=== PATIENT | male | born 1960 | race Caucasian/White ===

== ENCOUNTER 2025-02-17 08:17 | Outpatient (AMB) | payer OTHER, SELFPAY ==
--- OUTSIDE RECORDS SUMMARY | 2024-11-07 07:45 | XMS_ITS ---
Author Organization [facility] Address [address] [place] [address] Care Team Providers Care Creche Attendant Name Role Phone Alixrichard Amador Primary Care Provider ALLERGIES No Known Allergies REASON FOR VISIT (IN OFFICE), Follow Up MEDICATIONS Medication SIG (Take, Route, Frequency, Duration) Notes Start Date End Date Status Vitamin D3 125 MCG (5000 UT) 1 capsule Orally Once a day for 90 Days Active Meloxicam 15 MG 1 tablet Orally Once a day for 30 day(s) 11/07/2024 Active Nicoderm CQ 7 MG/24HR 1 patch to skin Transdermal Once a day for 30 day(s) Active Alfuzosin HCl ER 10 MG 1 tablet immediat crista after the same meal Orally Once a day for 30 day(s) 11/07/2024 Active SOCIAL HISTORY Tobacco Use: Social History Observation Description Date Details (start date - stop date) Former Smoker NA - NA Sex Assigned At : Social History Observation Description Sex Assigned At Unknown Tobacco Use/Smoking Question Answer Notes Are you a former smoker Alcohol Screen Question Answer Notes Did you have a drink contain ing alcohol in the past year? Yes How often did you have a dri nk containing alcohol in the past year? 2 to 3 times a week (3 points) Points 3 Interpretation Negative VITAL SIGNS Blood pressure systolic 132 mm Hg 11/08/19 25 Blood pressure diastolic 72 mm Hg 025 Heart Rate 80 /min 11/07/2024 Height 64 in 11/07/2024 Weight 213.6 lbs 11/07/2024 BMI 36.66 kg/m2 11/07/2024 Encounters Encounter Location Date Provider Diagnosis Eduin Griffin, [address] [place] [address] 11/07/2024 Amador Denny Status post right kn ee replacement Z96.651 ; Primary osteoarthritis of right hip M16.11 ; Acute pain of right knee M25.561 ; Benign prostatic hyperplasia with lower urinary tract symptoms N40.1 and Vitamin D deficiency E55.9 ASSESSMENTS Encounter Date Diagnosis Assessment Notes Treatment Notes Treatment Clinical Notes Section Notes 11/07/2024 Status post right knee replacement (ICD-10 - Z96.651) 11/07/2024 Primary osteoarthritis of right hip (ICD-10 - M16.11) 11/07/2024 Acute pain of right knee (ICD-10 - M25.561) 11/07/2024 Benign prostatic hyperplasia with lower urinary tract symptoms (ICD-10 - N40.1) 11/07/2024 Vitamin D deficiency (ICD-10 - E55.9) 11/07/2024 Other This chart has been transcribed by a computerized dictation system. There are likely to be multiple car designer inaccuracies despite chart review. PLAN OF TREATMENT Medication Medication Name Sig Start Date Stop Date Notes Vitamin D3 125 MCG (5000 UT) 1 capsule O rally Once a day for 90 Days Tamsulosin HCl 0.4 MG 1 capsule Orally O nce a day for 90 Days Ibuprofen 800 MG 1 tablet with food o r milk as needed Orally every 8 hrs Meloxicam 15 MG 1 tablet Orally Once a day for 30 day(s) 11/07/2024 Alfuzosin HCl ER 10 MG 1 tablet immediat crista after the same meal Orally Once a day for 30 day(s) 11/07/2024 Treatment Notes Assessment Notes Other This chart has been transcribed by a computerized dictation system. There are likely to be multiple car designer inaccuracies despite chart review. Next Appt Details Follow Up: 4 Weeks, Reason: Follow up with Marissa Provider Name:Marissa Coughlinmontserratallyssa samson, 02/25/2025 04:15:00 PM, [address] [place] [address], [phone], Progress Notes * Examination Category Sub-Category Detail Notes Category Not es General Examination GENERAL APPEARANCE: in no ac [place] distress, well developed, well nourished HEAD: normocephalic, atrau matic EYES: pupils equal, round, reactive to light and accommodation THROAT: clear, no erythema, uvula midline, no exudate NECK/THYROID: neck supple, no thyr omegaly, trachea midline, no carotid bruit HEART: no murmurs, regular rate and rhythm, S1, S2 normal LUNGS: clear to auscultatio n bilaterally ABDOMEN: soft, nontender, non distended, no organomegaly , bowel sounds present NEUROLOGIC: alert and oriented x 3, nonfocal SKIN: no suspicious lesion s, warm and dry EXTREMITIES: no clubbing, cyanosi s, or edema PERIPHERAL PULSES: normal, 2+ throughou t MUSCULOSKELETAL: tenderness and swell ing to right knee, temperature normal LYMPH NODES: no cervical, axillar y, supraclavicular or inguinal adenopathy PSYCH: cognitive function i ntact, mood/affect full range ORAL CAVITY: mucosa moist, no les ions, palate normal, tongue in midline, well papillated History and Physical Notes * HPI (History of Present Illness) Category Sub-Category Detail Notes Category Not es Symptom(s) 64-year-old mal e patient with history of DJD, status post total right knee replacement and chronic tobacco abuse is here for follow up. He is compliant with his medications but he tells me that the ibuprofen is bothering his stomach and his tamsulosin is making him drowsy. He has only been taking the ibuprofen 800mg once a day because of the upset stomach. I suggested trying Meloxicam 15mg daily for mangement of his pain. He is agreeable to this and I explained that he can use Tylenol in conjunction if needed. I told him to stop the Tamsulosin 0.4mg and try Alfuzosin 10mg daily instead in hopes that it will not make him drowsy. He is agreeable to this. He has been seen by Dr. Hunt for a consultation regarding his right hip and it will be having a hip replacement in the near future. He continues to follow with Dr. Holt from the [place] for his care as well. I have asked that all notes be shared with this office. His blood pressure is well controlled. He denies chest pain, palpitations and shortness of breath.
--- OUTSIDE RECORDS SUMMARY | 2024-12-02 11:15 | XMS_ITS ---
[facility] Address [address] [place] [address] Care Team Providers Care Atg Architect Name Role Phone Amador Denny Primary Care Provider ALLERGIES No Known Allergies REASON FOR VISIT (IN OFFICE), Follow Up MEDICATIONS Medication SIG (Take, Route, Frequency, Duration) Notes Start Date End Date Status Meloxicam 15 MG 1 tablet Orally Once a day for 30 day(s) Active Vitamin D3 125 MCG (5000 UT) 1 capsule Orally Once a day for 90 Days Active Alfuzosin HCl ER 10 MG 1 tablet immediat crista after the same meal Orally Once a day for 30 day(s) Active Nicoderm CQ 7 MG/24HR 1 patch to skin Transdermal Once a day for 30 day(s) Active SOCIAL HISTORY Tobacco Use: Social History [...] week (3 points) Points 3 Interpretation Negative Encounters Encounter Location Date Provider Diagnosis [facility] [address] [place] [address] 12/02/2024 Amador Denny Status post right kn [...] system. There are likely to be multiple sporting goods salesperson inaccuracies despite chart review. PLAN OF TREATMENT Medication Medication Name Sig Start Date Stop Date Notes Meloxicam 15 MG 1 tablet Orally Once a day for 30 day(s) Vitamin D3 125 MCG (5000 UT) 1 capsule O rally Once a day for 90 Days Alfuzosin HCl ER 10 MG 1 tablet immediat crista after the same meal Orally Once a day for 30 day(s) Treatment Notes Assessment Notes Other This chart has been transcribed by a computerized dictation system. There are likely to be multiple sporting goods salesperson inaccuracies despite chart review. Next Appt Details Provider Name:Marissa Powell i, 02/25/2025 04:15:00 PM, [address] [place] [address], [phone], Progress Notes * Examination Category Sub-Category Detail Notes Category Not es General Examination GENERAL APPEARANCE: in no ac [place] distress, well developed, well nourished HEAD: normocephalic, [...] to follow with Dr. Holt from the [place] for his care as well. I have asked that all notes be shared with this office. His blood pressure is well controlled. He denies chest pain, palpitations and shortness of breath.
--- OUTSIDE RECORDS SUMMARY | 2024-12-03 01:03 | XMS_ITS ---
Author Organization [facility] Address [address] [place] [address] Care Team Providers Care Senior Data Warehouse Architect Name Role Phone Amador Denny Primary Care Provider [phone] REASON FOR VISIT Missed appointment Encounters Encounter Location Date Provider Diagnosis Amador D[facility] [address] [facility] [place] [place] [id number] 12/03/2024 Amador Denny PLAN OF TREATMENT Next Appt Details Provider Name:Marissa Powell i, 02/25/2025 04:15:00 PM, [address] [place], [phone],
--- OUTSIDE RECORDS SUMMARY | 2024-12-04 11:00 | XMS_ITS ---
[facility] Address [address] [place] [address] Care Team Providers Care Washcloth Folder Name Role Phone AlixAmador ramos Primary Care Provider [phone] ALLERGIES No Known Allergies REASON FOR VISIT (IN OFFICE), Follow Up MEDICATIONS Medication SIG (Take, Route, Frequency, Duration) Notes Start Date End Date Status Vitamin D3 125 MCG (5000 UT) 1 capsule Orally Once a day for 90 Days Active Nicoderm CQ 7 MG/24HR 1 patch to skin Transdermal Once a day for 30 day(s) Active Meloxicam 15 MG 1 tablet Orally Once a day for 30 day(s) Active Alfuzosin HCl ER 10 MG 1 tablet immediat crista after the same meal Orally Once a day for 90 Days Active SOCIAL HISTORY Tobacco Use: Social History [...] week (3 points) Points 3 Interpretation Negative PROBLEMS Problem Type ICD Code Onset Dates Problem Status W/U Status Risk SNOMED Code Notes Problem Stasis dermatitis (I87.2) Active confirmed 26202889 VITAL SIGNS Blood pressure systolic 120 mm Hg 12/05/19 25 Blood pressure diastolic 80 mm Hg 025 Heart Rate 72 /min 12/04/2024 Height 64 in 12/04/2024 Weight 213.8 lbs 12/04/2024 BMI 36.69 kg/m2 12/04/2024 Encounters Encounter Location Date Provider Diagnosis Eduin Griffin, [address] [place] [address] 12/04/2024 Amador Denny Benign prostatic hyperplasia with lower urinary tract symptoms N40.1 ; Primary osteoarthritis of right hip M16.11 ; Acute pain of right knee M25.561 ; Vitamin D deficiency E55.9 and Stasis dermatitis I87.2 ASSESSMENTS Encounter Date Diagnosis Assessment Notes Treatment Notes Treatment Clinical Notes Section Notes 12/04/2024 Benign prostatic hyperplasia with lower urinary tract symptoms (ICD-10 - N40.1) 12/04/2024 Primary osteoarthritis of right hip (ICD-10 - M16.11) 12/04/2024 Acute pain of right knee (ICD-10 - M25.561) 12/04/2024 Vitamin D deficiency (ICD-10 - E55.9) 12/04/2024 Stasis dermatitis (ICD-10 - I87.2) Advised patient to avoid tight, band-like clothing around ankles. Encouraged him to wear compression stockings when on his feet for an extended period of time. 12/04/2024 Other This chart has been transcribed by a computerized dictation system. There are likely to be multiple vocal artist inaccuracies despite chart review. PLAN OF TREATMENT Medication Medication Name Sig Start Date Stop Date Notes Vitamin D3 125 MCG (5000 UT) 1 capsule O rally Once a day for 90 Days Meloxicam 15 MG 1 tablet Orally Once a day for 30 day(s) Alfuzosin HCl ER 10 MG 1 tablet immediat crista after the same meal Orally Once a day for 90 Days Treatment Notes Assessment Notes Stasis dermatitis Advised patient to a void tight, band-like clothing around ankles. Encouraged him to wear compression stockings when on his feet for an extended period of time. Other This chart has been transcribed by a computerized dictation system. There are likely to be multiple vocal artist inaccuracies despite chart review. Next Appt Details Follow Up: 3 Months, Reason: Follow up with Marissa Provider Name:Marissa Coughlinmontserratallyssa samson, 02/25/2025 04:15:00 PM, [address] [place] [address], [phone], Progress Notes * Examination Category Sub-Category Detail Notes Category Not es General Examination GENERAL APPEARANCE: in no ac [place] distress, well developed, well nourished HEAD: normocephalic, [...] alert and oriented x 3, nonfocal SKIN: scattered, flat, pin -point red spots on bilateral lower legs at sock line, no increase in temperature, no swelling EXTREMITIES: no clubbing, cyanosi s, or edema PERIPHERAL PULSES: normal, 2+ throughou t MUSCULOSKELETAL: normal, full range o f motion of the right hip with pain, no point tenderness of hip, no increase in temperature LYMPH NODES: no cervical, axillar y, supraclavicular [...] abuse is here for follow up. He tells me that his BPH symptoms are improved with the switch to Alfuzosin 10mg. He tells me that his stream is still on the weaker side. I explained that the medication can take up to 6 weeks to be fully in his system. He tells me that his pain is much better controlled with Meloxicam 15mg daily and tylenol as needed. He has not had any stomach issues. His blood pressure remains well controlled without medication. He denies chest pain, palpitations and shortness of breath. He is scheduled for his right hip replacement on 01/[address] Hunt. He showed me a rash on his bilateral lower legs at his sock line that he tells me comes and goes, is not painful, itchy or raised. I explained that it most likely could be stasis dermatitis. I encouraged him to wear compression stockings when on his feet for long periods of time.
--- OUTSIDE RECORDS SUMMARY | 2024-12-12 08:33 | XMS_ITS ---
Author Organization [facility] Address [address] [place] [address] Care Team Providers Care Shoe Salesman Name Role Phone Amador Denny Primary Care Provider [phone] REASON FOR VISIT No show Encounters Encounter Location Date Provider Diagnosis Eduin Griffin [address] [place] [address] 12/13/19 Amador Denny PLAN OF TREATMENT Next Appt Details Provider Name:Marissa Powell i, 02/25/2025 04:15:00 PM, [address] [place], [phone],
--- OUTSIDE RECORDS SUMMARY | 2024-12-21 12:04 | XMS_ITS ---
Author Organization [facility] Address [address] [place] [address] Care Team Providers Care Licensed Vocational Nurse Name Role Phone Amador Denny Primary Care Provider REASON FOR VISIT Encounters Encounter Location Date Provider Diagnosis Eduin Griffin [address] [place] [address] 12/22/19 Amador Denny PLAN OF TREATMENT Next Appt Details Provider Name:Marissa Powell i, 02/25/2025 04:15:00 PM, [address] [place], [address],
--- OUTSIDE RECORDS SUMMARY | 2025-01-19 09:45 | XMS_ITS ---
[facility] Organization [facility] Address [address] [place] [address] Care Team Providers Care Linux System Admin Name Role Phone AlixAmador ramos Primary Care Provider ALLERGIES No Known Allergies REASON FOR VISIT (IN OFFICE), Follow Up (Hospitalization) MEDICATIONS Medication SIG (Take, Route, Frequency, Duration) Notes Start Date End Date Status Nicoderm CQ 7 MG/24HR 1 patch to skin Transdermal Once a day for 30 day(s) Active Meloxicam 15 MG 1 tablet Orally Once a day for 30 day(s) Active Tamsulosin HCl 0.4 MG 1 capsule Orally O nce a day for 30 day(s) 01/19/2025 Active Meloxicam 15 MG TAKE 1 TABLET BY JOHNNA TH EVERY DAY for 30 Active Vitamin D3 125 MCG (5000 UT) 1 capsule Orally Once a day for 90 Days Active IMMUNIZATIONS Vaccine Route Administration Date Status Comme nts * FLUARIX TIV PFS IM Intramuscular 01/19/2025 Administered SOCIAL HISTORY Tobacco Use: Social History Observation [...] Interpretation Negative VITAL SIGNS Blood pressure systolic 120 mm Hg 01/20/20 25 Blood pressure diastolic 70 mm Hg 025 Heart Rate 80 /min 01/19/2025 Height 64 in 01/19/2025 Weight 223.4 lbs 01/19/2025 BMI 38.34 kg/m2 01/19/2025 Encounters Encounter Location Date Provider Diagnosis [facility], [address] [place] [address] 01/19/2025 Amador Denny Benign prostatic hyperplasia with lower urinary tract symptoms N40.1 ; Primary osteoarthritis of right hip M16.11 ; Vitamin D deficiency E55.9 ; Stasis dermatitis I87.2 and Encounter for immunization Z23 ASSESSMENTS Encounter Date Diagnosis Assessment Notes Treatment Notes Treatment Clinical Notes Section Notes 01/19/2025 Benign prostatic hyperplasia with lower urinary tract symptoms (ICD-10 - N40.1) 01/19/2025 Primary osteoarthritis of right hip (ICD-10 - M16.11) 01/19/2025 Vitamin D deficiency (ICD-10 - E55.9) 01/19/2025 Stasis dermatitis (ICD-10 - I87.2) Advised patient to avoid tight, band-like clothing around ankles. Encouraged him to wear compression stockings when on his feet for an extended period of time. 01/19/2025 Encounter for immunization (ICD-10 - Z23) 01/19/2025 Other This chart has been transcribed by a computerized dictation system. There are likely to be multiple clothes drier assembler inaccuracies despite chart review. PLAN OF TREATMENT Medication Medication Name Sig Start Date Stop Date Notes Meloxicam 15 MG 1 tablet Orally Once a day for 30 day(s) Tamsulosin HCl 0.4 MG 1 capsule Orally O nce a day for 30 day(s) 01/19/2025 Alfuzosin HCl ER 10 MG 1 tablet immediat crista after the same meal Orally Once a day for 90 Days Vitamin D3 125 MCG (5000 UT) 1 capsule O rally Once a day for 90 Days Treatment Notes Assessment Notes Stasis dermatitis Advised patient to a void tight, band-like clothing around ankles. Encouraged him to wear compression stockings when on his feet for an extended period of time. Other This chart has been transcribed by a computerized dictation system. There are likely to be multiple clothes drier assembler inaccuracies despite chart review. Next Appt Details Follow Up: as scheduled, Aria son: Provider Name:Marissa Powell i, 02/25/2025 04:15:00 PM, [address] [place] [address], [phone], Progress Notes * Examination Category Sub-Category Detail Notes Category Not es General Examination GENERAL APPEARANCE: in no ac [place] distress, well developed, well nourished HEAD: normocephalic, [...] Sub-Category Detail Notes Category Not es Symptom(s) 65-year-old mal e patient with history of DJD, status post total right knee replacement and chronic tobacco abuse is here for follow up s/p right hip replacement and hospitalization. He tells me that surgery went well and he is recovering well. He is mobile with the use of a walker and has started physical therapy. His pain is improved compared to prior to surgery. He is not needing narcotic pain medications and taking Tylenol PRN. He has a f/u with his ortho surgeon tomorrow. I have asked for those notes to be sent to our office. He tells me that he is still having difficulty with a weak stream with urination. He would like to try Tamsulosin 0.4mg again. I advised him to stop the Alfuzosin 10mg and restart Tamsulosin. His other chronic conditions are well controlled on current medications without side effects. He denies chest pain, palpitations and shortness of breath. He receieved a flu shot at today's visit.
--- OUTSIDE RECORDS SUMMARY | 2025-01-26 09:00 | XMS_ITS ---
Author Organization [facility] Address [address] [place] [address] Care Team Providers Care Community Relations Advisor Name Role Phone Amador Denny Primary Care Provider ALLERGIES No Known Allergies RESULTS Component Value Reference Range Notes Urinalysis, Complete-[id number] Reviewed date:01/28/2025 07:06:44 AM Interpretation: Performing Lab:[facility], [address] [facility], Phone - [phone], Director - Carlo Notes/Report: Clinical Information:SRC: Clinical Information:SRC: Specific [place] 1.006 1.005-1.030 pH 6.0 5.0-7.5 Urine-Color Red Yellow Appearance Cloudy Clear WBC Esterase 2+ Negative Protein 2+ Negative/Trace Glucose Negative Negative Ketones Negative Negative Occult Blood 2+ Negative Bilirubin Negative Negative Urobilinogen,Semi-Qn 0.2 0.2-1.0 mg/dL Nitrite, Urine Negative Negative Microscopic Examination See below: Micr oscopic was indicated and was performed. Microscopic Examination WBC >30 0 - 5 /hpf RBC 0-2 0 - 2 /hpf Epithelial Cells (non renal) None seen 0 - 10 /hpf Epithelial Cells (renal) Casts None seen None seen /lpf Cast Type Crystals Crystal Type Mucus Threads Bacteria None seen None seen/Few Yeast Trichomonas Comment Urine Culture, Routine-[id number] Reviewed date:01/28/2025 07:06:44 AM Interpretation: Performing Lab:[facility] [place], [address], [place], Phone - [phone], Director - Carlo Notes/Report: Clinical Information:SRC: Clinical Information:SRC: Urine Culture, Routine Final report Result 1 Culture shows less than 10,000 colony forming units of bacteria per milliliter of urine. This colony count is not generally considered to be clinically significant. REASON FOR VISIT (IN OFFICE) Sick Visit MEDICATIONS Medication SIG (Take, Route, Frequency, Duration) Notes Start Date End Date Status Meloxicam 15 MG TAKE 1 TABLET BY JOHNNA TH EVERY DAY for 30 Active Tamsulosin HCl 0.4 MG 1 capsule Orally O nce a day for 30 day(s) 01/19/2025 Active Cipro 500 MG 1 tablet Orally ever y 12 hrs for 10 days 01/26/2025 Active Vitamin D3 125 MCG (5000 UT) 1 capsule Orally Once a day for 90 Days Active Meloxicam 15 MG 1 tablet Orally Once a day for 30 day(s) Active Pyridium 200 MG 1 tablet after meals Orally Three times a day for 2 day(s) 01/26/2025 Active Nicoderm CQ 7 MG/24HR 1 patch [...] SIGNS Blood pressure systolic 120 mm Hg 01/27/20 25 Blood pressure diastolic 70 mm Hg 025 Heart Rate 72 /min 01/26/2025 Height 64 in 01/26/2025 Weight 221 lbs 01/26/2025 BMI 37.93 kg/m2 01/26/2025 Encounters Encounter Location Date Provider Diagnosis [facility] [address] [place] [id number] 01/26/2025 Amador Denny Marcos hematuria R31. 0 ; Dysuria R30.0 and Chills R68.83 ASSESSMENTS Encounter Date Diagnosis Assessment Notes Treatment Notes Treatment Clinical Notes Section Notes 01/26/2025 Marcos hematuria (ICD-10 - R31.0) 01/26/2025 Dysuria (ICD-10 - R30.0) 01/26/2025 Chills (ICD-10 - R68.83) 01/26/2025 Other This chart has been transcribed by a computerized dictation system. There are likely to be multiple morning news anchor inaccuracies despite chart review. PLAN OF TREATMENT Medication Medication Name Sig Start Date Stop Date Notes Cipro 500 MG 1 tablet Orally every 12 hrs for 10 days 01/08 Pyridium 200 MG 1 tablet after meals Orally Three times a day for 2 day(s) 01/26/2025 Treatment Notes Assessment Notes Other This chart has been transcribed by a computerized dictation system. There are likely to be multiple morning news anchor inaccuracies despite chart review. Pending Test Test Name Order Date CT Abdomen and Pelvis 01/26/2025 Next Appt Details Provider Name:Marissa Powell i, 02/25/2025 04:15:00 PM, [address] [place] [address], [phone], Progress Notes * Examination Category Sub-Category Detail [...] MUSCULOSKELETAL: normal, full range o f motion LYMPH NODES: no cervical, axillar y, supraclavicular [...] replacement and chronic tobacco abuse is here stating of sudden onset of marcos hematuria, dysuria, chills, for the past 2-3 days. He denies trauma to his kidneys. He tells me that he has been on high-dose aspirin since his right hip surgery. I advised him to hold aspirin. I ordered urinalysis AND sensitivity CT abdomen and pelvis. I started patient on Cipro and Pyridium. I advised him to increase his fluid intake.
--- OUTSIDE RECORDS SUMMARY | 2025-01-27 10:09 | XMS_ITS ---
Author Organization [facility] Address [address] [place] [address] Care Team Providers Care Top Frame Fitter Name Role Phone Amador Denny Primary Care Provider REASON FOR VISIT Results Encounters Encounter Location Date Provider Diagnosis [facility] [address] [place] [address] 01/28/20 Amador Denny PLAN OF TREATMENT Next Appt Details Provider Name:Marissa Powell i, 02/25/2025 04:15:00 PM, [address] [place], [phone],
--- OUTSIDE RECORDS SUMMARY | 2025-01-28 03:45 | XMS_ITS ---
Author Organization [facility] Address [address] [place] [address] Care Team Providers Care Insole Coverer Name Role Phone EduinAmador Primary Care Provider ALLERGIES No Known Allergies REASON FOR REFERRAL Reason Urgent visit regardi ng bladder mass on recent CT and hematuria. Requesting PVU if possible. Diagnosis 1 Bladder mass (N32.89 ) [facility] Referring Provider First Name Marissa Referring Provider Last Name Maco Referring Provider Speciality Nurse Prac titioner Referred Provider Specialty Urology General Notes Geri Crews 01/28/2025 09:21:05 AM > LMAM for triage @ [facility]ucena Caitlyn R 01/28/2025 11:35:05 AM > Booked with Dr. Connelly in the [place] office 02/04/25 @ 830am. Must bring photo ID and insurance card. If unable to keep appt, call 24 hours in advance. otherwise there's a $50 no show fee.Azucena Caitlyn R 02/03/2025 09:56:25 AM > will not cover PVU- they are out of network and patient would need to pay out of pocket. Redirected to [facility]. Request and notes faxed to that office @ [phone]. Phone is [phone] Referral Priority Routine REASON FOR VISIT (IN OFFICE) Follow Up MEDICATIONS Medication SIG (Take, Route, Frequency, Duration) Notes Start Date End Date Status Meloxicam 15 MG 1 tablet Orally Once a day for 30 day(s) Active Tamsulosin HCl 0.4 MG 1 capsule Orally O nce a day for 30 day(s) 01/19/2025 Active Nicoderm CQ 7 MG/24HR 1 patch [...] W/U Status Risk SNOMED Code Notes Problem Bladder mass (N32.89) Active confirmed [id number] VITAL SIGNS Blood pressure systolic 110 mm Hg 01/29/20 25 Blood pressure diastolic 68 mm Hg 025 Heart Rate 70 /min 01/28/2025 Height 64 in 01/28/2025 Weight 220.0 lbs 01/28/2025 BMI 37.76 kg/m2 01/28/2025 Encounters Encounter Location Date Provider Diagnosis [facility] [address] [place] [address] 01/28/2025 Amador Denny Damian hematuria R31. 0 and Bladder mass N32.89 ASSESSMENTS Encounter Date Diagnosis Assessment Notes Treatment Notes Treatment Clinical Notes Section Notes 01/28/2025 Damian hematuria (ICD-10 - R31.0) Hematuria has resolved since last visit. 01/28/2025 Bladder mass (ICD-10 - N32.89) PLAN OF TREATMENT Treatment Notes Assessment Notes Damian hematuria Hematuria has resolv ed since last visit. Referrals Referral Date Details Urgent visit regardi ng bladder mass on recent CT and hematuria. Requesting PVU if possible. Next Appt Details Follow Up: as scheduled, Aria son: Provider Name:Marissa Powell i, 02/25/2025 04:15:00 PM, [address] [place] [address], [phone], Progress Notes * Examination Category Sub-Category Detail [...] mal e patient with history of DJD, s/p total right knee replacement, s/p right hip replacement and chronic tobacco abuse is here to discuss his recent CT results which showed a 2.3cm intraluminal mass in his bladder than was unable to be further evaluated due to the hardware of his right hip replacement. I have placed an urgent urology referral for further evaluation which I explained is the best next step. He tells me that he is no longer having hematuria, dysuria or frequency since starting the Cipro. He denies difficulty starting his stream or having a weak stream. He has one dose left of antibiotics. I advised him to restart his aspirin for his rip hip replacement. I advised him to take one tablet twice a day and if the bleeding returns to stop again. His other chronic conditions are well controlled. He continues to heal from his hip replacement well. He denies chest pain, palpitations and shortness of breath. Consultation Request Notes Referral Date Referring Provider Referred Provider Not es 01/28/2025 Marissa Dewey , Urgent visi t regarding bladder mass on recent CT and hematuria. Requesting PVU if possible.
--- OUTSIDE RECORDS SUMMARY | 2025-02-17 08:22 | XMS_ITS | Encounter Summary ---
Author Organization [facility] Address [address] [place] [address] Care Team Providers Care X Ray Technologist Name Role Phone Amador Denny Primary Care Provider [phone] Encounter Details Date Type Department Care Team (Late st Contact Info) Description 10/28/2024 ZoomSafert Message [facility] OR [address] [place] [address] Cheggin, Generic Provider [address] [place] [id number] Questionnaire Submission Social History Tobacco Use Types Packs/Day Years Used Date Smoking Tobacco: Former Cigarettes Smokeless Tobacco: Never Alcohol Use Standard Drinks/Week Comments Yes 0 (1 standard drink = 0.6 oz pur e alcohol) 10 drinks per week Sex and Gender Information Value Date Recorded Sex Assigned at Male 04/23/2024 4:12 PM EST Legal Sex Male 12:24 AM EDT Gender Identity Male 09/25/2024 8:02 AM EDT Sexual Orientation Straight 10/06/2024 8: 44 PM EDT documented as of this encounter Plan of Treatment Upcoming Encounters Date Type Department Care Team (Late st Contact Info) Description 03/03/2025 1:45 PM EST Follow-Up [facility] 94 [facility] Orthopedic Department [address] [facility] [address] [place] [address] Pasquale Hunt MD [address] [place] [address] documented as of this encounter Visit Diagnoses Not on filedocumented in this encounter Care Teams X Ray Technologist Relationship Specialty Start Date End Date Amador Denny [address] [place] [address] PCP - General Internal Medicine 04/23/24 documented as of this encounter
--- OUTSIDE RECORDS SUMMARY | 2025-02-17 08:22 | XMS_ITS | Encounter Summary ---
Author Organization [facility] Address [address] [place] [address] Care Team Providers Care Wellness Program Administrator Name Role Phone Amador Denny Primary Care Provider [phone] Encounter Details Date Type Department Care Team (Late st Contact Info) Description 01/01/2025 myChart Message [facility] Case Management Department [address] [place] [address] Samreen Mendoza RN venapro Social History Tobacco Use Types Packs/Day Years [...] Info) Description 03/03/2025 1:45 PM EST Follow-Up [facility] 94 [facility] Orthopedic Department [address] [facility] [address] [place] [address] Pasquale Hunt MD [address] [place] [address] documented as of this encounter Visit Diagnoses Not on filedocumented in this encounter Care Teams Wellness Program Administrator Relationship Specialty Start Date End Date Amador Denny [address] [place] [address] PCP - General Internal Medicine 04/23/24 documented as of this encounter
--- OUTSIDE RECORDS SUMMARY | 2025-02-17 08:22 | XMS_ITS | Encounter Summary ---
Author Organization [facility] Address [address] [place] [address] Care Team Providers Care Epic Stork Specialists Name Role Phone Amador Denny Primary Care Provider [phone] Encounter Details Date Type Department Care Team (Late st Contact Info) Description 11/25/2024 myChart Message [facility] Case Management Department [address] [place] [address] Samreen Mendoza RN equipmenet Social History Tobacco Use Types Packs/Day Years [...] Info) Description 03/03/2025 1:45 PM EST Follow-Up [facility] 94 [facility] Orthopedic Department [address] [facility] [address] [place] [address] Pasquale Hunt MD [address] [place] [address] documented as of this encounter Visit Diagnoses Not on filedocumented in this encounter Care Teams Epic Stork Specialists Relationship Specialty Start Date End Date Amador Denny [address] [place] [address] PCP - General Internal Medicine 04/23/24 documented as of this encounter
--- OUTSIDE RECORDS SUMMARY | 2025-02-17 08:22 | XMS_ITS | Encounter Summary ---
Author Organization [facility] Address [address] [place] [address] Care Team Providers Care Grants And Contracts Assistant Name Role Phone Amador Denny Primary Care Provider [phone] Encounter Details Date Type Department Care Team (Late Contact Info) Description 11/24/2024 myChart Message [facility] Case Management Department [address] [place] [address] Samreen Mendoza RN Medial equipment Social History Tobacco Use Types Packs/Day Years [...] PM EDT documented as of this encounter Miscellaneous Notes * Telephone Encounter - Dominic Rome [place] - 11/25/2024 8:38 AM EDT Regarding upcoming Right GISSELL scheduled for 01/05/2025 documented in this encounter Plan of Treatment Upcoming Encounters Date Type Department Care Team (Late st Contact Info) Description 03/03/2025 1:45 PM EST Follow-Up [facility] Orthopedic Department 94 [facility] [address] [place] [address] Pasquale Hunt MD [address] [place] [address] documented as of this encounter Visit Diagnoses Not on filedocumented in this encounter Care Teams Grants And Contracts Assistant Relationship Specialty Start Date End Date Amador Denny [address] [place] [address] PCP - General Internal Medicine 04/23/24 documented as of this encounter
--- OUTSIDE RECORDS SUMMARY | 2025-02-17 08:22 | XMS_ITS | Encounter Summary ---
Author Organization [facility] Address [address] [place] [address] Care Team Providers Care Application Internship Name Role Phone Amador Denny Primary Care Provider [phone] Encounter Details Date Type Department Care Team (Late st Contact Info) Description 11/22/2024 myChart Message [facility] Case Management Department [address] [place] [address] Samreen Mendoza RN Request for Recovery Equipment List for Hip Replacement Social History Tobacco Use Types Packs/Day Years [...] Description 03/03/2025 1:45 PM EST Follow-Up [facility] 94 [facility] Orthopedic Department 94 [facility] [address] [place] [address] Pasquale Hunt MD [address] [place] [address] documented as of this encounter Visit Diagnoses Not on filedocumented in this encounter Care Teams Application Internship Relationship Specialty Start Date End Date Amador Denny [address] [place] [address] PCP - General Internal Medicine 04/23/24 documented as of this encounter
--- OUTSIDE RECORDS SUMMARY | 2025-02-17 08:23 | XMS_ITS | Clinical Summary ---
Author Organization [facility] Address [address] [place] [address] Care Team Providers Care Sleeve Turner Name Role Phone Amador Denny Primary Care Provider [phone] Allergies No known active allergies Medications Vitamin D3 125 mcg (5,000 unit) tablet Take 1 tablet by mouth in the morning. 08/16/2024 Active nicotine (NICODERM CQ) 14 mg/[address] 1 patch on the skin every 24 hours. Active alfuzosin (UROXATRAL) 10 mg 24 hr tablet Take 10 mg by mouth in the morning. 11/10/2024 Active meloxicam (MOBIC) 15 mg tablet Take 15 mg by mouth in the morning. 11/10/2024 Active acetaminophen (TYLENOL) 500 mg tablet Take 1,000 mg by mouth every 6 hours as needed for pain. Active aspirin chewable tablet 81 mg Chew and swallow 2 tablets (162 mg total) by mouth 2 (two) times a day. 120 tablet 01/05/2025 Active tamsulosin (FLOMAX) 0.4 mg capsule 1 capsule every 24 hours. 01/19/2025 Active Active Problems Problem Noted Date Diagnosed Date Status post total hip replacement, right 025 Encounters Date Type Department Care Team Description 02/05/[address] Orthopedic Department [address] [place] [address] [phone] Pasquale Hunt MD Dentist appointment 02/04/[address] Orthopedic Department [address] [place] [address] [phone] Pasquale Hunt MD Dental Protocol 01/30/[address] Orthopedic Department [address] [place] [address] [phone] Pasquale Hunt MD Letters and Forms 01/27/[address] Orthopedic Department [address] [place] [address] [phone] Pasquale Hunt MD 01/26/[address] Orthopedic Department [address] [place] [address] [phone] Pasquale Hunt MD FYI 01/20/2025 1:30 PM EDT Follow-Up [address] Orthopedic Department [address] [place] [address] [phone] Pasquale Hunt MD Status post total replacement of right hip (Primary Dx) 01/05/2025 9:59 AM EDT Anesthesia Event [facility] OR [address] [place] [address] [phone] Clarence Mckeon MD Petka, Kally Ann, NP 01/05/2025 9:50 AM EDT - 01/05/2025 12:30 PM EDT Surgery [facility] OR [address] [place] [address] 77591 Pasquale Hunt MD TOTAL HIP ARTHROPLASTY [80030 (CPT )] 01/05/2025 8:01 AM EDT - 01/05/2025 3:30 PM EDT Hospital Encounter [facility] [place] [address] [place] [address] [phone] Pasquale Hunt MD Primary osteoarthritis of right hip (Primary Dx) Discharge Disposition: Home with Services (06) 01/01/2025 myChart Message [facility] Case Management Department [address] [place] [address] [phone] Samreen Mendoza RN venapro 12/19/2024 1:45 PM EDT Evaluation [facility] [address] Physical Therapy Department [address] [place] [address]69 Jaclyn Cheng, PT Pain of right hip (Primary Dx) 11/25/2024 Orders Only [facility] Case Management Department [address] [place] [address] [phone] Samreen Mendoza, YESSY Primary osteoarthritis of right hip (Primary Dx) 11/25/2024 myChart Message [facility] Case Management Department [address] [place] [address] [phone] Sloan RN equipmenet 11/24/2024 myChart Message [facility] Case Management Department [address] [place] [address] [phone] Samreen Mendoza RN Medial equipment 11/22/2024 myChart Message [facility] Case Management Department [address] [place] [address] [phone] Samreen Mendoza RN Request for Recovery Equipment List for Hip Replacement 11/18/2024 Telephone [facility] Case Management Department [address] [place] [address] [phone] Sloan RN 11/17/2024 Telephone [facility] Case Management Department [address] [place] [address] [phone] Samreen Mendoza, YESSY from Last 3 Months Immunizations Immunization Administration Dates Next Due Covid-19 Monovalent Vaccine, Moderna, mRNA, PF 1 ,05/27/2020 Influenza, Injectable, Madin Giuliana Canine Kidney, Preservative Free, Quadrivalent 02/20/2017 Influenza, Injectable, Quadrivalent, Preservativ e Free 12/17/2019,12/24/2017 Family History Relation Name Status Comments Father Mother Social History Tobacco Use Types Packs/Day Years Used Date Smoking Tobacco: Former Cigarettes Smokeless Tobacco: Never Tobacco Cessation:Counseling Given: Not Answered Alcohol Use Standard Drinks/Week Comments Yes 0 (1 standard drink = 0.6 oz pur e alcohol) 10 drinks per week Sex and Gender Information Value Date Recorded Sex Assigned at Male 04/23/2024 4:12 PM EST Legal Sex Male 12:24 AM EDT Gender Identity Male 09/25/2024 8:02 AM EDT Sexual Orientation Straight 10/06/2024 8: 44 PM EDT Last Filed Vital Signs Vital Sign Reading Time Taken Comments Blood Pressure 116/60 01/20/2025 1:31 PM EDT Pulse 78 01/05/2025 2:00 PM EDT Temperature 37.1 C (98.8 F) 01/20/2025 1:31 PM EDT Respiratory Rate 20 01/05/2025 1:45 PM EDT Oxygen Saturation 95% 01/05/2025 2:00 PM EDT Inhaled Oxygen Concentration - - Weight 100.2 kg (220 lb 12.8 oz) 01/20/2025 1:31 PM EDT Height 167.6 cm (5' 6 ) 01/20/2025 1:31 PM EDT Body Mass Index 35.64 01/20/2025 1:31 PM EDT Plan of Treatment Upcoming Encounters Date Type Department Care Team (Late st Contact Info) Description 03/03/2025 1:45 PM EST Follow-Up [address] Orthopedic Department [address] [place] [address] [address] [place] [address] Pasquale Hunt MD [address] [place] [address] Health Maintenance Due Date Last Done Comments Cologuard 1962 Colon Cancer Screening 1962 Colonoscopy 1962 FOBT / Fit Test 1962 HIV Screening 1962 Hepatitis C Screening 1962 Sigmoidoscopy 1962 DTaP,Tdap,and Td Vaccines (1 - Tdap) 01/18/1984 CT Lung Cancer Screening (Baseline) 01/18/2012 Pneumococcal Vaccine: 50+ Years (1 of 1 - PCV) 01/18/2012 Zoster Vaccines (1 of 2) 01/18/2012 Alcohol/Substance Use Screening 04/09/2024 Depression Screening and Follow-Up 04/09/2024 Social Drivers of Health Annual Screening 04/09/2024 COVID-19 Vaccine ( - season) 2024 02/03/2021, 05/27/2020 Diabetes Screening 12/11/2027 12/10/2024 RSV Vaccine (60+ years old and patients) (1 - 1-dose 75+ series) 2037 Influenza Vaccine Completed 01/19/2025, , 12/24/2017, Additional history exists Hepatitis B Vaccines Aged Out No long er eligible based on patient's age to complete this topic Medical Devices Implanted Type Area Food And Nutrition Professor Device Identifier Shelf Expiration Date Model / Serial / Lot Shell Acetabular Fulda Sector Gription 58mm Fulda - [id number] Implanted:Qty: 1 on 01/05/2025 by Pasquale Hunt MD at [facility] Implant Right: Hip DEPUY 05/09/2034 1217-32-0 58 / / [id number] Liner Acetabular 10 Degree Polyethylene [id number] 4mm Fulda Altrx - [id number] Implanted:Qty: 1 on 01/05/2025 by Pasquale Hunt MD at [facility] Implant Right: Hip DEPUY 10/06/2029 1221-40-1 58 / / [id number] Stem Femoral Stem Standard Neck 36x8l [id number] Srom Ceramax - [id number] Implanted:Qty: 1 on 01/05/2025 by Pasquale Hunt MD at [facility] Implant Right: Hip DEPUY 03/08/2029 52-3420 / / [id number] Head Femoral 02/19 Taper S-Rom M-Spec Metal 40mmxplus 0mm Fulda - [id number] Implanted:Qty: 1 on 01/05/2025 by Pasquale Hunt MD at [facility] Implant Right: Hip DEPUY 10/07/2027 1365-42-5 00 / / [id number] Screw Acetabular Cancellous Dome Stainless Steel 6.1mqc28cy Fulda - [id number] Implanted:Qty: 1 on 01/05/2025 by Pasquale Hunt MD at [facility] Screw Right: Hip DEPUY 09/06/2034 1217-35-5 00 / / [id number] S-Rom Modular Hip System Zti Proximal Sleeve Porous Coated Fits: 20 X 15 Stem Cone: B Fowler: Lrg Implanted:Qty: 1 on 01/05/2025 by Pasquale Hunt MD at [facility] Right: Hip DEPUY [employer] 05/09/2026 52-3105 / / [id number] Procedures * Due to [place] [employer] law, this organization might not be sharing negative HIV tests. Procedure Name Priority Date/Time Associated Diagnosis Comments XR HIP RIGHT 2+ VW W PELVIS Routine 01/20/2025 1:44 PM EDT Status post total replacement of right hip XR HIP RIGHT 1 VIEW W PELVIS Routine 01/05/2025 12:59 PM EDT SPINAL BLOCK Routine 01/05/2025 10:34 AM EDT [place] TOTAL HIP ARTHROPLASTY 01/05/2025 10:04 AM EDT Primary osteoarthritis of right hip Special Needs SROM ECG 12-LEAD Routine 12/22/2024 12:58 PM EDT Preop testing METHICILLIN RESISTANT STAPHYLOCOCCUS AUREUS (MRSA) CULTURE SCREEN Routine 12/22/2024 12:49 PM EDT Preop testing METHICILLIN RESISTANT STAPHYLOCOCCUS AUREUS (MRSA) CULTURE SCREEN Routine 12/22/2024 12:49 PM EDT Preop testing ALBUMIN Routine 12/10/2024 3:18 PM EDT Primary osteoarthritis of right hip CBC AUTO DIFFERENTIAL Routine 12/10/2024 3:18 PM EDT Primary osteoarthritis of right hip BASIC METABOLIC PANEL Routine 12/10/2024 3:18 PM EDT Primary osteoarthritis of right hip from Last 3 Months Results * Due to [place] [employer] law, this organization might not be sharing negative HIV tests. * XR Hip Right 2+ vw W Pelvis (01/20/2025 1:44 PM EDT) Anatomical Region Laterality Modality Body, Pelvis, Hip Right Radiographic I maging Narrative 01/20/2025 3:06 PM EDT The pelvis AP and lateral of right hip looking at these x-rays I do not see any sign of change in the good position of his acetabular component or the femoral component which feels well the proximal femur us Pasquale Hunt MD IMG XR PROCEDURES Final Re sult * XR Hip Right 1 View W Pelvis (01/05/2025 12:59 PM EDT) Anatomical Region Laterality Modality Body, Pelvis, Hip Right Radiographic I maging 01/05/2025 4:58 PM EDT Impressions 01/05/2025 4:58 PM EDT FINDINGS/IMPRESSION: Status post cementless right total hip arthroplasty. No radiographic evidence of periprosthetic fracture in the frontal projection. Expected immediate postsurgical changes within the surrounding soft tissues. If this radiology report contains a blank impression section, it is an incomplete radiology report. Please contact the interpreting radiologist or applicable radiology division as soon as possible to obtain the completed interpretation. Workstation ID: [id number] Narrative 01/05/2025 4:58 PM EDT COMPARISON: 10/23/2024. Resulting Agency Comment [id number] Procedure Note Abdon Krishnan MD - 01/05/2025 COMPARISON: 10/23/2024. IMPRESSION: FINDINGS/IMPRESSION: Status post cementless right total hip arthroplasty.No radiographic evidence of periprosthetic fracture in the frontalprojection. Expected immediate postsurgical changes within the surroundingsoft tissues. If this radiology report contains a blank impression section, it is anincomplete radiology report. Please contact the interpreting radiologistor applicable radiology division as soon as possible to obtain thecompleted interpretation. Workstation ID: [id number] us Pasquale Hunt MD IMG XR PROCEDURES Final Re sult * Spinal Block (01/05/2025 10:34 AM EDT) Narrative Clarence Mckeon MD - 01/05/2025 10:34 AM EDT Clarence Mckeon MD 01/05/2025 10:51 AM Spinal Block Patient Location: OR Start Date/Time: 01/05/2025 10:34 AM End Date/Time: 01/05/2025 10:42 AM Indication: surgical anesthesia Anesthesia Staff Authorized by: Clarence Mckeon MD Performed by: Clarence Mckeon MDAnesthesiologist: Clarence Mckeon MD Performed: anesthesiologist I was present during this procedure. Preanesthetic Checklist: 2 patient identifiers IV checked site marked risks and benefits discussed monitors and equipment checked pre-op evaluation anesthesia consent all elements of maximal sterile barrier technique followed patient position confirmed Spinal Block Patient position: sitting Prep: ChloraPrep Patient monitoring: NIBP, heart rate and continuous pulse oximetry Approach: midline Location: L3-4 Injection technique: single-shot Ultrasound guided/images retained: no Number of attempts: 2 (FIrst attempt L4-5 + OS, no csf) Needle Needle type: Kurtis Needle gauge: 25 G Needle length: 8.89 cm Assessment Events: cerebrospinal fluid and well tolerated us Clarence Mckeon MD ANESTHESIA ORDERABLES Final Result * ECG 12 lead For Preop? Yes (12/22/2024 12:58 PM EDT) Ventricular Rate EKG 66 BPM MUSE EKG Atrial Rate 66 BPM MUSE EKG [place] Interval 146 ms MUSE EKG QRS Interval 82 ms MUSE EKG QT Interval 374 ms MUSE EKG QTC Interval 392 ms MUSE EKG P Agra 70 degrees MUSE EKG R Agra 34 degrees MUSE EKG T Wave Agra -9 degrees MUSE EKG 12/22/2024 12:5 8 PM EDT 12/22/2024 1:38 PM EDT Impressions MUSE EKG - 12/22/2024 1:38 PM EDT Normal sinus rhythm Nonspecific T wave abnormality No previous ECGs available Confirmed by Anju Hayes ([id number]) on 12/22/2024 1:38:45 PM Narrative Procedure Note Anju Hayes MD - 12/22/2024 IMPRESSION: Normal sinus rhythm Nonspecific T wave abnormality No previous ECGs available Confirmed by Anju Hayes ([id number]) on 12/22/2024 1:38:45 PM us Tiki Newby NP ECG ORDERABLES Final Result MUSE EKG * Methicillin Resistant Staphylococcus aureus (MRSA) Culture Screen (12/22/2024 12:49 PM EDT) Only the most recent of2 resultswithin the time period is included. Pathologist [facility] MRSA Culture No methicillin resistant Staphylococcus aureus (MRSA) isolated. [place] [facility] 12/25/2024 10:45 AM EDT [facility] Swab Inguinal region structure / Unknown Non-Blood Collection / Unknown 12/22/2024 12:49 PM EDT 12/22/2024 12:58 PM EDT us Tiki Newby NP LAB MICROBIOLOGY - GENERAL OR DERABLES Final Result Performing Organization Address [facility] Co de Phone Number [facility] [address] [place] [address], [place] [phone] * (ABNORMAL) CBC Auto Differential (12/10/2024 3:18 PM EDT) Pathologist [facility] WBC 8.0 4.8 - 10.8 10*3/uL 12/10/2024 3:37 PM EDT [facility] RBC 4.16(L) 4.70 - 6.10 10*6/uL 12/10/2024 3:37 PM EDT [facility] Hemoglobin 12.7(L) 13.7 - 16.5 g/dL 12/10/2024 3:37 PM EDT [facility] Hematocrit 36.1(L) 40.5 - 48.5 % 12/10/2024 3:37 PM EDT [facility] MCV 86.8 80.0 - 94.0 fL 12/10/2024 3:37 PM EDT [facility] MCH 30.5 26.0 - 34.0 pg 12/10/2024 3:37 PM EDT [facility] MCHC 35.2 31.0 - 36.0 g/dL 12/10/2024 3:37 PM EDT [facility] RDW 12.9 12.0 - 15.0 % 12/10/2024 3:37 PM EDT [facility] RDW Standard Deviation 40.7 35.1 - 43.9 fL 12/10/2024 3:37 PM EDT [facility] Platelets 291 140 - 440 10*3/uL 12/10/2024 3:37 PM EDT [facility] MPV 9.4 9.4 - 12.4 fL 12/10/2024 3:37 PM EDT [facility] Neutrophil % 64.3 50.0 - 75.0 % 12/10/2024 3:37 PM EDT [facility] Immature Grans % 0.3 0.0 - 0.9 % 12/10/2024 3:37 PM EDT [facility] Lymphocyte % 22.3 20.0 - 44.0 % 12/10/2024 3:37 PM EDT [facility] Monocyte % 10.7 0.0 - 14.0 % 12/10/2024 3:37 PM EDT [facility] Eosinophil % 1.9 0.0 - 5.0 % 12/10/2024 3:37 PM EDT [facility] Basophil % 0.5 0.0 - 2.0 % 12/10/2024 3:37 PM EDT [facility] Neutrophil # 5.12 1.80 - 7.70 10*3/uL 12/10/2024 3:37 PM EDT [facility] Immature Grans # <0.03 0.00 - 0.03 10*3/uL 12/10/2024 3:37 PM EDT [facility] Lymphocyte # 1.80 1.00 - 4.75 10*3/uL 12/10/2024 3:37 PM EDT [facility] Monocyte # 0.90(H) 0.00 - 0.60 10*3/uL 12/10/2024 3:37 PM EDT [facility] Eosinophil # 0.20 0.00 - 0.80 10*3/uL 12/10/2024 3:37 PM EDT [facility] Basophil # <0.03 0.00 - 0.20 10*3/uL 12/10/2024 3:37 PM EDT [facility] nRBC % 0.0 0 - 0 /100 WBCs 12/10/2024 3:37 PM EDT [facility] nRBC # <0.01 0.00 - 0.13 10*3/uL 12/10/2024 3:37 PM EDT [facility] Blood Structure of peripheral vein / Unknown Venipuncture / Unknown 12/10/2024 3:18 PM EDT 12/10/2024 3:29 PM EDT us Pasquale Hunt MD LAB BLOOD ORDERABLES Final Result Performing Organization Address [facility]/ZIP Co de Phone Number [facility] [address] [address], [place] [phone] * Albumin (12/10/2024 3:18 PM EDT) Albumin 4.3 3.5 - 5.0 g/dL 12/10/2024 4:01 PM EDT [facility] Blood Structure of peripheral vein / Unknown Venipuncture / Unknown 12/10/2024 3:18 PM EDT 12/10/2024 3:30 PM EDT us Pasquale Hunt MD LAB BLOOD ORDERABLES Final Result Performing Organization Address City/[facility]/ZIP Co de Phone Number [facility] [address] [address], [place] [phone] * (ABNORMAL) Basic Metabolic Panel (12/10/2024 3:18 PM EDT) NA 138 136 - 145 mmol/L 12/10/2024 4:01 PM EDT [facility] K 4.1 3.5 - 5.1 mmol/L 12/10/2024 4:01 PM EDT [facility] Cl 106 98 - 109 mmol/L 12/10/2024 4:01 PM EDT [facility] CO2 20(L) 22 - 32 mmol/L 12/10/2024 4:01 PM EDT [facility] BUN 25(H) 8 - 23 mg/dL 12/10/2024 4:01 PM EDT [facility] Creatinine 1.05 0.50 - 1.12 mg/dL 12/10/2024 4:01 PM EDT [facility] Glucose 85 60 - 99 mg/dL 12/10/2024 4:01 PM EDT [facility] Calcium 9.4 8.4 - 10.4 mg/dL 12/10/2024 4:01 PM EDT [facility] Anion Gap 16 >=0 12/10/2024 4:01 PM EDT [facility] eGFR 80 >=60 mL/min/1. 73m2 12/10/2024 4:01 PM EDT [facility] Comment:The estimated glomer ular filtration rate (eGFR) is calculated using a new formula developed by the NKF-ASN task force to eliminate race-based correction factors. The new formula uses serum/plasma creatinine, age, and gender to determine eGFR. A value below 60mls/min might indicate kidney disease and will be flagged. For additional information, see Herndon et al, Am J Kidney Dis. 2021;79(2):268- 288, A Unifying Approach for GFR estimation: Recommendations of the NKF-ASN Task Force on Reassessing the Inclusion of Race in Diagnosing Kidney Disease . Blood Structure of peripheral vein / Unknown Venipuncture / Unknown 12/10/2024 3:18 PM EDT 12/10/2024 3:30 PM EDT us Pasquale Hunt MD LAB BLOOD ORDERABLES Final Result [facility] [address] [facility] [address] [place] [address], from Last 3 Months Insurance on file [employer] Advance Directives Documents on File Type Date Recorded Patient Billiard Table Repairer Expl anation Health Care Proxy 12/10/2024 5:20 PM HCP * Full Code (Latest Code Status on File) Date Activated Date Inactivated Comments 01/05/2025 8:03 AM 01/06/2025 9:42 AM Care Teams Sleeve Turner Relationship Specialty Start Date End Date Amador Denny [address] [facility] [place] [address] PCP - General Internal Medicine 04/23/24
--- OUTSIDE RECORDS SUMMARY | 2025-02-17 08:23 | XMS_ITS | Encounter Summary ---
Author Organization [facility] Address [address] [place] [address] Care Team Providers Care Digital Sales Manager Name Role Phone Amador Denny Primary Care Provider [phone] Reason for Visit * Reason Onset Date Comments Dental Protocol 02/04/2025 Encounter Details Date Type Department Care Team (Late st Contact Info) Description 02/04/[address] Orthopedic Department [address] [address] Pasquale Hunt MD [address] [place] [address] Dental Protocol Social History Tobacco Use Types Packs/Day Years [...] encounter Miscellaneous Notes * Telephone Encounter - Ryan Ríos MA - 02/05/2025 1:02 PM EDT Received transferred call from Davy and relayed Dr. Hunt's reply * Telephone Encounter - Ryan Ríos MA - 02/05/2025 9:14 AM EDT LVM for Davy @[phone] to c/b [phone] Pasquale Hunt MD 02/05/25 8:55 AM No need for dental prophylaxis * Telephone Encounter - Ryan Ríos MA - 02/04/2025 2:11 PM EDT TOTAL HIP ARTHROPLASTY [98286 (CPT??)] * Telephone Encounter - Anushka Mccullough - 02/04/2025 1:[address] Hunt, Patient called inquiring about the dental protocol post op 01/01. Please advise. Patient call back # [phone] documented in this encounter Plan of Treatment Upcoming Encounters Date Type Department Care Team (Late st Contact Info) Description 03/03/2025 1:45 PM EST Follow-Up [address] Orthopedic Department [address] [place] [phone] Pasquale Hunt MD [address] [place] [address] documented as of this encounter Visit Diagnoses Not on filedocumented in this encounter Care Teams Digital Sales Manager Relationship Specialty Start Date End Date Amador Denny [address] [place] [phone] PCP - General Internal Medicine 04/23/24 documented as of this encounter
--- OUTSIDE RECORDS SUMMARY | 2025-02-17 08:23 | XMS_ITS | Encounter Summary ---
Author Organization [facility] Address [address] [place] [address] Care Team Providers Care Parole Board Member Name Role Phone Amador Denny Primary Care Provider Reason for Visit * Reason Comments Med Change Request Encounter Details Date Type Department Care Team (Late st Contact Info) Description 01/27/[address] Orthopedic Department [address] [place] [phone] Pasquale Hunt MD [address] [place] [address] Social History Tobacco Use Types Packs/Day Years [...] Telephone Encounter - Ryan Ríos MA - 01/27/2025 12:11 PM EDT Pharmacy comment: REQUEST FOR 90 DAYS PRESCRIPTION. documented in this encounter Plan of Treatment Upcoming Encounters Date Type Department Care Team (Late Contact Info) Description 03/03/2025 1:45 PM EST Follow-Up [facility] 94 [facility] Orthopedic Department [address] [facility] [address] [place] [address] Pasquale Hunt MD [address] [place] [address] documented as of this encounter Visit Diagnoses Not on filedocumented in this encounter Care Teams Parole Board Member Relationship Specialty Start Date End Date Amador Denny [address] [place] [address] PCP - General Internal Medicine 04/23/24 documented as of this encounter
--- OUTSIDE RECORDS SUMMARY | 2025-02-17 08:23 | XMS_ITS | Clinical Summary ---
Author Organization [facility] Address [address] [place] [address] Phone Care Team Providers Care Cardiology Tech Name Role Phone Steve Toscano MD Primary Care Provider Allergies No known active allergies Medications nicotine (NICODERM CQ) 14 mg/[address] 1 patch onto the skin daily. Active acetaminophen (TYLENOL) 325 mg tablet Take 3 tablets (975 mg total) by mouth every 8 (eight) hours as needed for mild pain. 200 tablet 2 Active aspirin 81 mg chewable tablet Take 1 tablet (81 mg total) by mouth 2 (two) times a day for 28 days. 56 tablet 2 Active senna (SENOKOT) 8.6 mg tablet Take 2 tablets by mouth nightly at bedtime as needed for constipation. 30 tablet 2 Active oxyCODONE 5 MG immediate release tabletIndications: Primary osteoarthritis of right knee,Aftercare following right knee joint replacement surgery Take 1-2 tablets (5-10 mg total) by mouth every 4 (four) hours as needed for severe pain. For severe pain after surgery. Taper by decreasing your dosage and frequency of use as tolerated. Partial fill ok 40 tablet 2 Active Active Problems Problem Noted Date Diagnosed Date Primary osteoarthritis of right knee 06/07/2021 Social History Tobacco Use Types Packs/Day Years Used Date Smoking Tobacco: Every Day Cigarettes 0.3 6.7 Started: 06/11/2018 Smokeless Tobacco: Never Comments:My smoking started with the pandemic. I am currently trying to stop with the use of nicoderm CQ Alcohol Use Standard Drinks/Week Comments Yes 2 (1 standard drink = 0.6 oz pur e alcohol) Education Answer Date Recorded Are you interested in more education? Not on madelyn e 08/05/2022 Are you concerned about learning? Not on file 08/05/2022 No 08/05/2022 No 08/05/2022 Digital Access Answer Date Recorded No 08/30/2022 No 08/30/2022 No 08/30/2022 Reliable internet access at home? Not on file 08/30/2022 Device with a working camera? Not on file Sex and Gender Information Value Date Recorded Sex Assigned at Male 09/07/2020 12:19 PM EDT Legal Sex Male 12:00 PM EDT Gender Identity Male 09/07/2020 12:19 PM EDT Sexual Orientation Straight 09/07/2020 12 :19 PM EDT Last Filed Vital Signs Vital Sign Reading Time Taken Comments Blood Pressure 142/81 06/07/2021 4:00 PM EST Pulse 83 06/07/2021 4:00 PM EST Temperature 37.1 C (98.8 F) 06/07/2021 4:00 PM EST Respiratory Rate 18 06/07/2021 4:00 PM EST Oxygen Saturation 98% 06/07/2021 4:00 PM EST Inhaled Oxygen Concentration - - Weight 83.9 kg (185 lb) 07/15/2021 10:03 AM EDT Height 165.1 cm (5' 5 ) 07/15/2021 10:03 AM EDT Body Mass Index 30.79 07/15/2021 10:03 AM EDT Plan of Treatment Health Maintenance Due Date Last Done Comments Adult Td,Tdap Booster 1962 LIPID PANEL 1962 DEPRESSION SCREENING 1974 SMOKING Hx and SMOKELESS TOBACCO SCREENING 1975 HEPATITIS C SCREENING 01/18/1980 HIV ONE-TIME SCREENING (18-6 5 YEARS) 01/18/1980 PNEUMOCOCCAL VACCINES (50+ years) (1 of 2 - PCV) 1981 COLOGUARD 2007 COLONOSCOPY 2007 COLORECTAL CANCER SCREENING 2007 FIT TEST 2007 FOBT 2007 SIGMOIDOSCOPY 2007 VIRTUAL COLONOSCOPY 2007 ZOSTER VACCINES (1 of 2) 01/18/2012 INFLUENZA VACCINE (#1) 2024 , 12/24/2017, 02/20/2017 COVID-19 VACCINE (3 - 2024-2 6 season) 2024 02/03/2021, 05/27/2020 RSV VACCINE (1 - 1-dose 75+ series) 2037 HEPATITIS A VACCINES Aged Out No long er eligible based on patient's age to complete this topic HIB VACCINES Aged Out No longer eligi ble based on patient's age to complete this topic IPV VACCINES Aged Out No longer eligi ble based on patient's age to complete this topic MENINGOCOCCAL VACCINES (ACWY) Aged Out No longer eligible based on patient's age to complete this topic MENINGOCOCCAL VACCINES (B) Aged Out N o longer eligible based on patient's age to complete this topic Medical Devices Implanted Type Area Baseball [employer] Device Identifier Shelf Expiration Date Model / Serial / Lot Cement Bone 1x40gm [place] R High Viscosity - [id number] Implanted:Qty: 2 on 06/07/2021 by Fritz Heller MD, PhD at [facility] Right: Knee [employer] Warp 08/06/2024 [id number] / / [id number] Knee Insert 11mm Component Surface Persona Polyethylene Cruciate Retaining Fixed Conventional Right - [id number] Implanted:Qty: 1 on 06/07/2021 by Fritz Heller MD, PhD at [facility] Right: Knee ANDREW / [facility] 11/07/2028 [id number] / / [id number] Knee Patella 35mm Brittany Persona All Polyethylene Cemented Conventional - [id number] Implanted:Qty: 1 on 06/07/2021 by Fritz Heller MD, PhD at [facility] Right: Knee [employer]RE[employer] / [facility] 04/26/2029 [id number] / / [id number] Knee Implant 5.0deg Component Tibial Nexgen Titanium Stemmed Cemented Rt Size F - [id number] Implanted:Qty: 1 on 06/07/2021 by Fritz Heller MD, PhD at [facility] Right: Knee ANDREW / [facility] 12/12/2030 [id number] / / [id number] Knee Implant Component Size 11 Femoral Persona [place] Cement Cruciate Retaining Narrow Right - [id number] Implanted:Qty: 1 on 06/07/2021 by Fritz Heller MD, PhD at [facility] Right: Knee ANDREW / [facility] 10/11/2030 [id number] / / [id number] Insurance [facility] Advance Directives For more information, please contact: [phone] (9AM - 5PM [facility], Sunday-Sunday) Documents on File Type Date Recorded Patient Budget Examiner Expl anation Healthcare Proxy 06/08/2021 4:23 PM Care Teams Cardiology Tech Relationship Specialty Start Date End Date Steve Toscano MD [address] [place] [address] PCP - General 09/07/20 Additional Source Comments The information contained in this document represents components of the legal health record. It is not the complete legal health record.[facility]
--- OUTSIDE RECORDS SUMMARY | 2025-02-17 08:23 | XMS_ITS | Encounter Summary ---
Author Organization [facility] Address [address] [place] [address] Phone Care Team Providers Care Sheriff Sergeant Name Role Phone Steve Toscano MD Primary Care Provider Encounter Details Date Type Department Care Team (Latest Contact Info) Description 05/26/2021 Transcribe Orders [address] [address] [address] [place] [id number] [email or web address] Abnormal blood chemistry (Primary Dx) Social History Tobacco Use Types Packs/Day Years Used Date Smoking Tobacco: Never Assessed Sex and Gender Information Value Date Recorded Sex Assigned at Male 09/07/2020 12:19 PM EDT Legal Sex Male 12:00 PM EDT Gender Identity Male 09/07/2020 12:19 PM EDT Sexual Orientation Straight 09/07/2020 12 :19 PM EDT documented as of this encounter Plan of Treatment Not on file documented as of this encounter Results * Basic metabolic panel (05/26/2021 1:14 PM EST) SODIUM 139 136 - 145 mmol/L [facility] CHLORIDE 105 95 - 106 mmol/L [facility] POTASSIUM 4.5 3.5 - 5.2 mmol/L [facility] CO2 21 20 - 31 mmol/L [facility] BUN 20 9 - 23 mg/dL [facility] CREATININE 0.98 0.50 - 1.30 mg/dL [facility] GLUCOSE 77 74 - 106 mg/dL [facility] CALCIUM 9.4 8.7 - 10.4 mg/dL [facility] EGFR 89 >60 mL/min/1.7 3m2 [facility] Comment:Estimated glomerular filtration rate calculated using the CKD-EPI refit equation. ANION GAP 13 3 - 17 mmol/L [facility] Blood 05/26/2021 1:14 PM EST 05/26/2021 4:31 PM EST us Ernestina Pal MD LAB BLOOD BKR ORDER KAROLINA Final Result [facility] [address] [place] [address] * CBC and differential (05/26/2021 1:14 PM EST) WBC 7.77 4.0 - 11.0 K/uL [facility] RBC 4.81 4.32 - 5.72 M/uL [facility] HGB 14.5 13.5 - 17.5 g/dL [facility] HCT 43.0 38 - 50 % [facility] PLT 310 135 - 400 K/uL [facility] MCV 89.4 80 - 100 fL [facility] MCH 30.1 27 - 34 pg [facility] MCHC 33.7 31.5 - 36.5 g/dL [facility] RDW 12.6 11.9 - 14.8 % [facility] MPV 9.9 9.7 - 11.9 fl [facility] NRBC 0.00 0 /100 WBCs [facility] DIFF METHOD Auto [facility] NEUTS 62.9 % [facility] LYMPHS 22.5 % [facility] MONOS 11.5 % [facility] EOS 2.1 % [facility] BASOS 0.6 % [facility] Granulocytes, immature (%) 0.4 % [facility] ABSOLUTE NEUTS 4.89 1.8 - 7.5 K/uL [facility] ABSOLUTE LYMPHS 1.75 1 - 4.8 K/uL [facility] ABSOLUTE MONOS 0.89 0.1 - 0.9 K/uL [facility] ABSOLUTE EOS 0.16 0 - 0.4 K/uL [facility] ABSOLUTE BASOS 0.05 0 - 0.2 K/uL [facility] Granulocytes, immature 0.03 0 - 0.1 K/uL [facility] Blood 05/26/2021 1:14 PM EST 05/26/2021 4:07 PM EST us Ernestina Pal MD LAB BLOOD BKR ORDER KAROLINA Final Result Performing Organization Address City/State/[facility] Co de Phone Number [facility] [address] [place] [address] documented in this encounter Visit Diagnoses Diagnosis Abnormal blood chemistry- Primary Other abnormal blood chemistry documented in this encounter Care Teams Sheriff Sergeant Relationship Specialty Start Date End Date Steve Toscano MD [address] [place] [address] PCP - General 09/07/20 documented as of this encounter Additional Source Comments The information contained in this document represents components of the legal health record. It is not the complete legal health record.[facility]
--- OUTSIDE RECORDS SUMMARY | 2025-02-17 08:24 | XMS_ITS | Encounter Summary ---
Author Organization [facility] Address [address] [place] [address] Phone Care Team Providers Care Wrap Checker Name Role Phone Steve Toscano MD Primary Care Provider Encounter Details Date Type Department Care Team (Late st Contact Info) Description 06/07/2021 Procedure Pass [facility] [address] [place] [id number] Social History Tobacco Use Types Packs/Day Years Used Date Smoking Tobacco: Every Day Cigarettes 0.3 6.7 Started: 06/11/2018 Smokeless Tobacco: Never Comments:My smoking started with the pandemic. I am currently trying to stop with the use of nicoderm CQ Alcohol Use Standard Drinks/Week Comments Yes 2 (1 standard drink = 0.6 oz pur e alcohol) Sex and Gender Information Value Date Recorded Sex Assigned at Male 09/07/2020 12:19 PM EDT Legal Sex Male 12:00 PM EDT Gender Identity Male 09/07/2020 12:19 PM EDT Sexual Orientation Straight 09/07/2020 12 :19 PM EDT documented as of this encounter Plan of Treatment Not on file documented as of this encounter Visit Diagnoses Not on filedocumented in this encounter Care Teams Wrap Checker Relationship Specialty Start Date End Date Steve Toscano MD [address] [place] [address] PCP - General 09/07/20 documented as of this encounter Additional Source Comments The information contained in this document represents components of the legal health record. It is not the complete legal health record.[facility]
--- OUTSIDE RECORDS SUMMARY | 2025-02-17 08:24 | XMS_ITS | Patient Health Record ---
Author Organization edson Elias Address [address] [place] [place] [address] Care Team Providers Care Registered Nurse Cardiovascular Icu Name Role Phone Amador Denny Primary Care Provider ALLERGIES No Known Allergies RESULTS Component Value Reference Range Notes Lumbar Spine 2 or 3 Views Reviewed date:10/14/2024 04:07:39 PM Interpretation: Performing Lab: Notes/Report: Lumbar Spine 2 or 3 Views Reason: M54.16 lumbar radiculopathy COMPARISON: None. FINDINGS: No bone lesions or fractures. There is moderate disc space narrowing L5-S1 the remaining lumbar disc spaces fairly well preserved. There is scattered marginal osteophyte formation, the largest at the L1-L2 level anteriorly and on the right side. There is facet arthropathy L4-L5 and L5-S1. Normal alignment. No spondylolysis or spondylolisthesis. There are advanced arthritic changes about the right hip with marked joint space narrowing superiorly, subchondral bone sclerosis and spurring. Normal soft tissues. IMPRESSION: 1. Degenerative changes as detailed above, most pronounced at L1-L2 and L5-S1, along with lower facet arthropathy. 2. Advanced osteoarthritis of the right hip. WSN: [id number] Ordering Physician: Amador Denny Dictated By: Morgan Osman MD CT Abd/Pelvis W/O Contrast Reviewed date:01/27/2025 03:28:37 PM Interpretation: Performing Lab: Notes/Report: CT Abd/Pelvis W/O Contrast Reason: R31.0 R68.83 R60.0 Gross hematuria TECHNIQUE: Spiral CT through the abdomen and pelvis without IV contrast formatted in 3 planes. This study was performed without oral contrast. Weight-based protocol using automatic tube modulation was used to optimize exposure parameters. CTDIvol Body: 15.47 mGy, DLP Body: 898 mGy*cm. COMPARISON: Abdomen CT 12/24/2013 FINDINGS: Super[employer] View Findings, Lines and Tubes: Right hip arthroplasty. Visualized Chest: Lung bases are clear. No pleural effusion. The heart is normal in size. No pericardial effusion. Diaphragm: Normal. Liver: Multiple left lobe subcentimeter circumscribed low-density lesions likely represent cysts. Gallbladder: Contracted. Bile ducts: No biliary ductal dilation. Spleen: Normal. Pancreas: Normal. Adrenal glands: Bilateral low-attenuation lesions suggesting adenomas. Kidneys and ureters: No hydronephrosis, stones, or noncontrast evidence of suspicious masses. Mild bilateral perinephric stranding. Bladder: Somewhat limited evaluation from metallic artifact from right hip arthroplasty however there is increased attenuation within the right posterior bladder base measuring 2.3 x 1.8 x 1.8 cm suggesting possible intraluminal focal mass lesion. Reproductive organs: Limited evaluation. Prostatomegaly. Stomach, small bowel, and large bowel: Normal. Appendix: Normal. Peritoneum and retroperitoneum: No ascites or pneumoperitoneum. No omental or mesenteric lesions. Lymph nodes: No enlarged lymph nodes. Blood vessels: Mild vascular calcifications but no aneurysm. Abdominal and pelvic wall: Unremarkable. Bones: No acute abnormality. Right hip arthroplasty. Degenerative disc changes noted in the spine. IMPRESSION: Possible 2.3 cm intraluminal posterior right bladder mass with further evaluation limited by right hip metallic streak artifact. Consider bladder ultrasound to further assess and potential tissue sampling. Prostatomegaly. No hydronephrosis or nephrolithiasis. An actionable message ([place]) has been communicated via the [facility] system on 01/27/2025 2:54 PM, Message ID [id number]. WSN: [id number] Ordering Physician: Amador Denny Dictated By: [facility] HDZ, Edouard Mosley PSA Total+% Free-[id number] Reviewed date:04/17/2024 10:51:33 AM Interpretation: Performing Lab:[facility] [place], [address], [place], Phone - [phone], Director - Carlo Notes/Report: Prostate Specific Ag 3.1 0.0-4.0 ng/mL Maddy ECLIA methodology. . According to the [place] [employer], Serum PSA should decrease and remain at undetectable levels after radical prostatectomy. The AUA defines biochemical recurrence as an initial PSA value 0.2 ng/mL or greater followed by a subsequent confirmatory PSA value 0.2 ng/mL or greater. Values obtained with different assay methods or kits cannot be used interchangeably. Results cannot be interpreted as absolute evidence of the presence or absence of malignant disease. PSA, Free 0.61 N/A ng/mL Maddy ECLIA met hodology. % Free PSA 19.7 The table below lists the probability of prostate cancer for men with non-suspicious KRISTI results and total PSA between 4 and 10 ng/mL, by patient age (Med et al, YASIR 1998, 279:1542). % Free PSA 50-64 yr 65-75 yr 0.00-10.00% 56% 55% 10.01-15.00% 24% 35% 15.01-20.00% 17% 23% 20.01-25.00% 10% 20% >25.00% 5% 9% Please note: Med et al did not make specific recommendations regarding the use of percent free PSA for any other population of men. Vitamin D, 59-Satzihm-[id number] Reviewed date:04/17/2024 10:51:33 AM Interpretation: Performing Lab:[facility], [address] [place] [address], [place], Phone - [phone], Director - Carlo Notes/Report: Vitamin D, 25-Hydroxy 19.8 30.0-100.0 ng/mL Vitamin D deficiency has been defined by the [place] [employer] and an Endocrine Society practice guideline as a level of serum 25-OH vitamin D less than 20 ng/mL (1,2). The Endocrine Society went on to further define vitamin D insufficiency as a level between 21 and 29 ng/mL (2). 1. IOM ([place] of [employer]). 2010. Dietary reference intakes for calcium and D. [place]: The National Academies Press. 2. Felipe CASSIDY, Gissell CARDONA, Kim PINTO, et al. Evaluation, treatment, and prevention of vitamin D deficiency: an Endocrine Society clinical practice guideline. JCEM. 2010; 96(7):1911-30. TSH+Free [id number] Reviewed date:04/17/2024 10:51:33 AM Interpretation: Performing Lab:[facility], [address] [place] [address], Phone - [phone], [facility]Report: TSH 0.715 0.450-4.500 uIU/mL T4,Free(Direct) 1.33 0.82-1.77 ng/dL Lipid Panel-[id number] Reviewed date:04/17/2024 10:51:33 AM Interpretation: Performing Lab:[facility], [address] [place] [address], Phone - [phone], Director - MDdry Notes/Report: Cholesterol, Total 181 100-199 mg/dL Triglycerides 70 0-149 mg/dL HDL Cholesterol 54 >39 mg/dL VLDL Cholesterol Abundio 13 5-40 mg/dL LDL Chol Calc ([facility]) 114 0-99 mg/dL LDL Calc Comment: Comp. Metabolic Panel (13)-3 [id number] Reviewed date:04/17/2024 10:51:34 AM Interpretation: Performing Lab:[facility], [address] [place] [address], Phone - [phone], [facility]Report: Glucose 83 70-99 mg/dL BUN 20 8-27 mg/dL Creatinine 1.02 0.76-1.27 mg/dL eGFR 83 >59 mL/min/1.73 BUN/Creatinine Ratio 20 10-24 Sodium 139 134-144 mmol/L Potassium 4.4 3.5-5.2 mmol/L Chloride 104 96-106 mmol/L Carbon Dioxide, Total 19 20-29 mmol/L Calcium 9.2 8.6-10.2 mg/dL Protein, Total 6.9 6.0-8.5 g/dL Albumin 4.5 3.9-4.9 g/dL Globulin, Total 2.4 1.5-4.5 g/dL Bilirubin, Total 0.3 0.0-1.2 mg/dL Alkaline Phosphatase 72 44-121 IU/L AST (SGOT) 20 0-40 IU/L CBC with Diff, Platelet, NLR -[id number] Reviewed date:04/17/2024 10:51:34 AM Interpretation: Performing Lab:[facility] [place], [address] [place] [address], Phone - [phone], Director - MDHarleendry Notes/Report: WBC 9.1 3.4-10.8 x10E3/uL RBC 4.61 4.14-5.80 x10E6/uL Hemoglobin 14.2 13.0-17.7 g/dL Hematocrit 42.3 37.5-51.0 % MCV 92 79-97 fL MCH 30.8 26.6-33.0 pg MCHC 33.6 31.5-35.7 g/dL RDW 12.5 11.6-15.4 % Platelets 382 150-450 x10E3/uL Neutrophils 70 Not Estab. % Lymphs 19 Not Estab. % Monocytes 9 Not Estab. % Eos 2 Not Estab. % Basos 0 Not Estab. % Immature Cells Neutrophils (Absolute) 6.4 1.4-7.0 x10E3/uL Lymphs (Absolute) 1.8 0.7-3.1 x10E3/uL Neut/Lymph Ratio 3.6 0.0-2.9 ratio Published COVID-19 studies suggest: Low likelihood of severe COVID-19 disease progression 0.0-2.9 High likelihood of severe COVID-19 disease progression >4.9 Monocytes(Absolute) 0.8 0.1-0.9 x10E3/uL Eos (Absolute) 0.1 0.0-0.4 x10E3/uL Baso (Absolute) 0.0 0.0-0.2 x10E3/uL Immature Granulocytes 0 Not Estab. % Immature Grans (Abs) 0.0 0.0-0.1 x10E3/uL NRBC Hematology Comments: Urinalysis, Complete-[id number] Reviewed date:01/28/2025 07:06:44 AM Interpretation: Performing Lab:[facility], [address] [facility] [address], [place], Phone - [phone], Director - Carlo Notes/Report: Clinical Information:SRC: Clinical Information:SRC: Specific [place]on 1.006 1.005-1.030 pH 6.0 5.0-7.5 Urine-Color Red [...] None seen/Few Yeast Trichomonas Comment Urine Culture, Routine-[id number] Reviewed date:01/28/2025 07:06:44 AM Interpretation: Performing Lab:[facility], [address], [place], Phone - [phone], Director - Carlo Notes/Report: Clinical Information:SRC: Clinical Information:SRC: Urine Culture, Routine Final report Result 1 Culture shows less than 10,000 colony forming units of bacteria per milliliter of urine. This colony count is not generally considered to be clinically significant. REASON FOR REFERRAL Reason Please refer the pat ient to [facility] Diagnosis 1 Status post right kn ee replacement (Z96.651) Referral Organization Amador Denny Md Referring Provider First Name Amador Referring Provider Last Name Eduin Referring Provider Speciality Internal M edicine Referred Provider Specialty Orthopedic S urgery General Notes Lilliana Tripathi 11/2024 10:01:27 AM EST > faced paperwork to [facility] , Lilliana Tripathi 04/22/2024 09:23:30 AM EST > refaxed, Lilliana Tripathi 04/23/2024 10:17:49 AM EST > called and got a new updated number, Eligio BEVERLEYLilliana 04/23/2024 01:56:54 PM EST > LMAM with number to call to schedule , Eligio BEVERLEYLilliana 04/23/2024 01:57:41 PM EST > and if he needs further assistance he can call me back and I will do what I can to assist , Lilliana Tripathi 04/23/2024 02:01:27 PM EST > patient called back patient original Knee Replacement was done at [facility]. , Lilliana Tripathi 04/25/2024 08:08:45 AM EST > [place] [facility] [place] [facility] for patient. Clinical Notes Wants to go to [facility] , , // [phone] Referral Priority Routine Reason Screening colonoscop y Diagnosis 1 Screening for colon cancer (Z12.11) Referral Organization Amador Denny Md Referring Provider First Name Amador Referring Provider Last Name Eduin Referring Provider Speciality Internal edicine Referred Provider Specialty Gastroentero logy General Notes Aamir Alvares 12:59:07 PM EST > [facility] 11:28:10 AM EST > Refaxed Giorgio Kalise 06/04/2024 11:28:15 AM EST > Pt has number for gastro to call and schedule if he has any issues he knows to give us a call. Clinical Notes [facility] Referral Priority Routine Reason Evaluate and treat Diagnosis 1 Status post right kn ee replacement (Z96.651) Referral Organization Amador Denny Md Referring Provider First Name Amador Referring Provider Last Name Eduin Referring Provider Speciality Internal edicine Referred Provider Specialty Physical The rapist General Notes Aamir Alvares 02/2025 03:23:53 PM EST > Faxed to [facility] Kirsten 05/22/2024 04:02:10 PM EST > needs inserance referral, Aamir Alvares 05/23/2024 10:25:48 AM EST > Insurance referral given to Hilda to do. Giorgio Kalise 05/23/2024 10:48:00 AM EST > [facility] out of network, closest place is [facility] in [facility], p: [phone] f:[phone], Lilliana Tripathi 05/26/2024 01:56:21 PM EST > pt given the info to call and follow up with this, Giorgio Kalise 05/29/2024 09:57:16 AM EST > PT then called and said that he needed and ins referral but then also said they didn't receive a referral Referral Priority Routine Reason 30 minute procedure appointment for excision biopsy of the inclusion cyst upper back Diagnosis 1 Epidermal inclusion cyst (L72.0) Referral Organization Amador Denny Md Referring Provider First Name Amador Referring Provider Last Name Eduin Referring Provider Speciality Internal edicine Referred Provider Specialty Other Medica l Care General Notes Lilliana Tripathi 01:49:06 PM EST > LMAM to schedule appt Referral Priority Routine Reason Referral to orthoped ic surgery at [facility] Diagnosis 1 Status post right kn ee replacement (Z96.651) Referral Organization Amador Denny Md Referring Provider First Name Amador Referring Provider Last Name Eduin Referring Provider Speciality Internal M edicine Referred Provider Specialty Orthopedic S urgery General Notes Aamir Alvares 02:23:25 PM EDT > Faxed to [place] Giorgio Esquivel Kalise 08/26/2024 11:40:48 AM EDT > refaxed to [place] Giorgio Esquivel Kalise 09/02/2024 02:11:13 PM EDT > Clem from [facility] states that he didn't have the Referral refaxed it over , Aamir Alvares 09/04/2024 08:09:32 AM EDT > Pt was seen on 09/03/24 Clinical Notes Cruz Esquivel, PH : [phone], F: [phone] Referral Priority Routine Referral Appointment Date 09/03/2024 Reason lower back pain with sciatica. Pt prefers [facility]. Diagnosis 1 Lumbar radiculopathy (M54.16) Referral Organization Amador Denny Md Referring Provider First Name Amador Referring Provider Last Name Eduin Referring Provider Speciality Internal edicine Referred Provider Specialty Physical The rapist General Notes Vita Baker 10/17/19 04:53:31 PM EDT > faxed to [facility], Vita Baker 10/20/2024 02:11:19 PM EDT > Patient has been left multiple message, he has not called back to reschedule Clinical Notes [address] [place] [address], f [phone] Referral Priority Routine Reason Consultation for rig ht hip replacement. Diagnosis 1 Primary osteoarthrit is of right hip (M16.11) Referral Organization Amador Denny Md Referring Provider First Name Amador Referring Provider Last Name Eduin Referring Provider Speciality Internal M edicine Referred Provider Specialty Orthopedic S urgery General Notes Lilliana Tripathi 12/2024 10:22:17 AM EDT > [facility] no longer has a Ortho department, please let him know and refer to Giorgio PUENTE Kalise 10/15/2024 02:27:46 PM EDT > Faxed to Giorgio Arroyo Kalise 10/21/2024 11:41:08 AM EDT > Cruz has recieved the fax and they would like the pt to call and schedule.Giorgio Kalise 10/21/2024 11:43:09 AM EDT > Pt has phone number and is going to call to schedule Clinical Notes [place], PH: [phone], F: [phone] Referral Priority Routine Reason Urgent visit regardi ng bladder mass on recent CT and hematuria. Requesting PVU if possible. Diagnosis 1 Bladder mass (N32.89 ) Referral Organization [facility] [place], [place], Referring Provider First Name Marissa Referring Provider [...] fee.Azucena Caitlyn R 02/03/2025 09:56:25 AM > [facility] will not cover PVU- they are out of network and patient would need to pay out of pocket. Redirected to [facility]. Request and notes faxed to that office @ [phone]. Phone is [phone] Referral Priority Routine MEDICATIONS Medication SIG (Take, Route, Frequency, Duration) Notes Start Date End Date Status Tamsulosin HCl 0.4 MG 1 capsule Orally O nce a day for 30 day(s) 01/19/2025 Active Meloxicam 15 MG TAKE 1 TABLET BY JOHNNA TH EVERY DAY for 30 Active Nicoderm CQ 7 MG/24HR 1 patch [...] W/U Status Risk SNOMED Code Notes Problem Vitamin D deficiency (E55.9) Active confirmed 81631876 Problem Right sided sciatica (M54.31) Active confirmed 229894941665698 Problem Primary osteoarthritis of right hip (M16.11) Active confirmed 114502671621580 Problem Lumbar radiculopathy (M54.16) Active confirmed 064190277 Problem Benign prostatic hyperplasia with lower urinary tract symptoms (N40.1) Active confirmed 9276418001774 Problem Bladder mass (N32.89) Active confirmed 140256397 Problem Stasis dermatitis (I87.2) Active confirmed 46868222 Problem Status post right knee replacement (Z96.651) Active confirmed 8515997376620 VITAL SIGNS Heart Rate 70 /min 01/28/2025 Blood pressure diastolic 68 mm Hg 01/28/2025 Height 64 in 01/28/2025 Blood pressure systolic 110 mm Hg 01/28/2025 Weight 220.0 lbs 01/28/2025 BMI 37.76 kg/m2 01/28/2025 PROCEDURES Procedure Date Ordered Date Performed Result Body Sit e EAR IRRIGATION 08/25/2024 N/A Encounters Encounter Location Date Provider Diagnosis [facility] [address] [place] [address] 04/15/2024 Amador Denny Status post right kn ee replacement Z96.651 ; Laboratory tests ordered as part of a complete physical exam (CPE) Z00.00 and Encounter to establish care Z76.89 [facility] [address] [place] [phone] 04/25/2024 [facility] Shipman [address] [place] [address] 05/20/2024 Amador Denny Annual physical exam Z00.00 ; Vitamin D deficiency E55.9 ; Status post right knee replacement Z96.651 ; Benign prostatic hyperplasia with lower urinary tract symptoms N40.1 ; Epidermal inclusion cyst L72.0 and Screening for colon cancer Z12.11 [facility] [place], [place], [address] [address] 05/21/2024 [facility] [address] [address] 05/21/2024 [facility] [address] [address] 05/29/2024 [facility] [address] [address] 06/13/2024 Amador Denny EIC (epidermal inclusion cyst) L72.0 [facility] [place], [place], [address] [address] 06/23/2024 [facility] [address] [address] 06/23/2024 Amador Denny Surgical wound infection T81.49XA and Encounter for removal of sutures Z48.02 [facility] [place], [place], [address] [address] 07/03/2024 [facility] [address] [address] 07/31/2024 Amador Denny nury [facility], [address] [address] 08/18/2024 [facility] [address] [address] 08/19/2024 Amador Denny Status post right kn ee replacement Z96.651 ; Acute pain of right knee M25.561 ; Benign prostatic hyperplasia with lower urinary tract symptoms N40.1 and Vitamin D deficiency E55.9 Amador Denny Md [address] [place] [phone] 08/23/2024 Amador Denny Md [address] [place] [phone] 08/23/2024 Amador Denny Md [address] [place] [id number] 08/25/2024 [facility] [address] [address] 08/25/2024 Amador Denny Foreign body of righ t ear, initial encounter [facility] [address] [address] 08/26/2024 [facility] [address] [address] 09/04/2024 [facility] [address] [address] 09/09/2024 Amador Denny Acute pain of right knee M25.561 [facility] [address] [address] 10/13/2024 Amador Denny Lumbar radiculopathy M54.16 and Right sided sciatica M54.31 [facility] [address] [address] 10/14/2024 [facility] [address] [address] 10/15/2024 Amador Denny Status post right kn ee replacement Z96.651 ; Primary osteoarthritis of right hip M16.11 ; Acute pain of right knee M25.561 ; Benign prostatic hyperplasia with lower urinary tract symptoms N40.1 and Vitamin D [facility]55.9 [facility] [address] [address] 11/07/2024 Amador Denny Status post right kn ee replacement Z96.651 ; Primary osteoarthritis of right hip M16.11 ; Acute pain of right knee M25.561 ; Benign prostatic hyperplasia with lower urinary tract symptoms N40.1 and Vitamin D [facility]55.9 [facility] [address] [address] 12/02/2024 Amador Denny Status post right kn ee replacement Z96.651 ; Primary osteoarthritis of right hip M16.11 ; Acute pain of right knee M25.561 ; Benign prostatic hyperplasia with lower urinary tract symptoms N40.1 and Vitamin D deficiency E55.9 Amador Denny Md [address] [place] [id number] 12/03/2024 [facility] [address] [address] 12/04/2024 Amador Denny Benign prostatic hyperplasia with lower urinary tract symptoms N40.1 ; Primary osteoarthritis of right hip M16.11 ; Acute pain of right knee M25.561 ; Vitamin D deficiency E55.9 and Stasis dermatitis I87.[address] [address] 12/12/[address] [address] 12/21/[address] [address] 01/19/2025 Amador nury Benign prostatic hyperplasia with lower urinary tract symptoms N40.1 ; Primary osteoarthritis of right hip M16.11 ; Vitamin D deficiency E55.9 ; Stasis dermatitis I87.2 and Encounter for immunization Z23 [address] [address] 01/26/2025 Amador Denny Damian hematuria R31. 0 ; Dysuria R30.0 and Chills R68.[address] [address] 01/27/[address] [address] 01/28/2025 Amador Denny Damian hematuria R31. 0 and Bladder mass N32.89 ASSESSMENTS Encounter Date Diagnosis Assessment Notes Treatment Notes Treatment Clinical Notes Section Notes 06/13/2024 EIC (epidermal inclusion cyst) (ICD-10 - L72.0) 01/28/2025 Bladder mass (ICD-10 - N32.89) 01/28/2025 Damian hematuria (ICD-10 - R31.0) Hematuria has resolved since last visit. 01/26/2025 Dysuria (ICD-10 - R30.0) 01/26/2025 Damian hematuria (ICD-10 - R31.0) 01/19/2025 Benign prostatic hyperplasia with lower urinary tract symptoms (ICD-10 - N40.1) 12/04/2024 Benign prostatic hyperplasia with lower urinary tract symptoms (ICD-10 - N40.1) 12/02/2024 Status post right knee replacement (ICD-10 - Z96.651) 10/15/2024 Status post right knee replacement (ICD-10 - Z96.651) 10/15/2024 Primary osteoarthritis of right hip (ICD-10 - M16.11) 10/13/2024 Lumbar radiculopathy (ICD-10 - M54.16) 10/13/2024 Right sided sciatica (ICD-10 - M54.31) 09/09/2024 Acute pain of right knee (ICD-10 - M25.561) 08/25/2024 Foreign body of right ear, initial encounter (ICD-10 - T16.1XXA) The patient's verbal consent right ear lavage performed recovering a insect.NDthe patient's ear before and after the procedure. Over 20 minutes was spent in direct patient contact appointment procedure. Patient tolerated the procedure well. Aftercare discussed with the patient. 11/07/2024 Status post right knee replacement (ICD-10 - Z96.651) 06/23/2024 Encounter for removal of sutures (ICD-10 - Z48.02) 06/23/2024 Surgical wound infection (ICD-10 - T81.49XA) Sutures removed. 1 cc of pus removed the suture line. 08/19/2024 Acute pain of right knee (ICD-10 - M25.561) 08/19/2024 Status post right knee replacement (ICD-10 - Z96.651) 05/20/2024 Vitamin D deficiency (ICD-10 - E55.9) 05/20/2024 Annual physical exam (ICD-10 - Z00.00) 04/15/2024 Laboratory tests ordered as part of a complete physical exam (CPE) (ICD-10 - Z00.00) 04/15/2024 Status post right knee replacement (ICD-10 - Z96.651) 11/07/2024 Acute pain of right knee (ICD-10 - M25.561) 11/07/2024 Primary osteoarthritis of right hip (ICD-10 - M16.11) 08/19/2024 Benign prostatic hyperplasia with lower urinary tract symptoms (ICD-10 - N40.1) 10/15/2024 Acute pain of right knee (ICD-10 - M25.561) 12/02/2024 Primary osteoarthritis of right hip (ICD-10 - M16.11) 12/04/2024 Primary osteoarthritis of right hip (ICD-10 - M16.11) 12/04/2024 Acute pain of right knee (ICD-10 - M25.561) 05/20/2024 Status post right knee replacement (ICD-10 - Z96.651) 01/19/2025 Primary osteoarthritis of right hip (ICD-10 - M16.11) 01/19/2025 Vitamin D deficiency (ICD-10 - E55.9) 04/15/2024 Encounter to establish care (ICD-10 - Z76.89) 01/26/2025 Chills (ICD-10 - R68.83) 11/07/2024 Benign prostatic hyperplasia with lower urinary tract symptoms (ICD-10 - N40.1) 08/19/2024 Vitamin D deficiency (ICD-10 - E55.9) 10/15/2024 Benign prostatic hyperplasia with lower urinary tract symptoms (ICD-10 - N40.1) 05/20/2024 Benign prostatic hyperplasia with lower urinary tract symptoms (ICD-10 - N40.1) 12/02/2024 Acute pain of right knee (ICD-10 - M25.561) 12/04/2024 Vitamin D deficiency (ICD-10 - E55.9) 01/19/2025 Stasis dermatitis (ICD-10 - I87.2) Advised patient to avoid tight, band-like clothing around ankles. Encouraged him to wear compression stockings when on his feet for an extended period of time. 11/07/2024 Vitamin D deficiency (ICD-10 - E55.9) 10/15/2024 Vitamin D deficiency (ICD-10 - E55.9) 05/20/2024 Epidermal inclusion cyst (ICD-10 - L72.0) 12/02/2024 Benign prostatic hyperplasia with lower urinary tract symptoms (ICD-10 - N40.1) 12/04/2024 Stasis dermatitis (ICD-10 - I87.2) Advised patient to avoid tight, band-like clothing around ankles. Encouraged him to wear compression stockings when on his feet for an extended period of time. 01/19/2025 Encounter for immunization (ICD-10 - Z23) 05/20/2024 Screening for colon cancer (ICD-10 - Z12.11) 12/02/2024 Vitamin D deficiency (ICD-10 - E55.9) 05/20/2024 Other This chart has been transcribed by a computerized dictation system. There are likely to be multiple exhibit electrician inaccuracies despite chart review. 08/19/2024 Other This chart has been transcribed by a computerized dictation system. There are likely to be multiple exhibit electrician inaccuracies despite chart review. 11/07/2024 Other This chart has been transcribed by a computerized dictation system. There are likely to be multiple exhibit electrician inaccuracies despite chart review. 10/13/2024 Other This chart has been transcribed by a computerized dictation system. There are likely to be multiple exhibit electrician inaccuracies despite chart review. 10/15/2024 Other This chart has been transcribed by a computerized dictation system. There are likely to be multiple exhibit electrician inaccuracies despite chart review. 12/02/2024 Other This chart has been transcribed by a computerized dictation system. There are likely to be multiple exhibit electrician inaccuracies despite chart review. 12/04/2024 Other This chart has been transcribed by a computerized dictation system. There are likely to be multiple exhibit electrician inaccuracies despite chart review. 01/19/2025 Other This chart has been transcribed by a computerized dictation system. There are likely to be multiple exhibit electrician inaccuracies despite chart review. 04/15/2024 Other This chart has been transcribed by a computerized dictation system. There are likely to be multiple exhibit electrician inaccuracies despite chart review. 06/23/2024 Other This chart has been transcribed by a computerized dictation system. There are likely to be multiple exhibit electrician inaccuracies despite chart review. 08/25/2024 Other This chart has been transcribed by a computerized dictation system. There are likely to be multiple exhibit electrician inaccuracies despite chart review. 01/26/2025 Other This chart has been transcribed by a computerized dictation system. There are likely to be multiple exhibit electrician inaccuracies despite chart review. PLAN OF TREATMENT Pending Test Test Name Order Date MRI : Lumbosacral Spines 10/13/2024 X ray : Knee, right 04/15/2024 CT Abdomen and Pelvis 01/26/2025 X ray : LS Spine 10/13/2024 GUAIAC, SINGLE SPECIMEN 05/20/2024 EAR IRRIGATION 08/25/2024 Next Appt Details Provider Name:Marissa Coughlinmontserratallyssa samson, 02/25/2025 04:15:00 PM, [address] [place] [address], [phone], Insurance Providers Payer Name Payer Address Payer Phone Subscriber Number Group Number Insured Name Patient Relationship to Insured Coverage Start Date Coverage End Date [facility] [address] [place] [address] [id number] Davy Noble Self - patient is the insured MEDICAL (GENERAL) HISTORY Surgical History Surgery Date(Month/Year) Right Total Knee Replacement 2022 Right Total Hip Replacement 12/2024 Hospitalization History Reason Date(Month/Year) For Above Procedure
--- OUTSIDE RECORDS SUMMARY | 2025-02-17 08:24 | XMS_ITS | Encounter Summary ---
Author Organization [facility] Address [address] [place] [address] Phone Care Team Providers Care Stone Processing Machine Operator Name Role Phone Steve Toscano MD Primary Care Provider Encounter Details Date Type Department Care Team (Late st Contact Info) Description 02/03/2021 Procedure Pass [facility] [place] [facility] [address] [place] [address] Social History Tobacco Use Types Packs/Day Years [...] on filedocumented in this encounter Care Teams Stone Processing Machine Operator Relationship Specialty Start Date End Date Steve Toscano MD [address] [place] [address] PCP - General 09/07/20 documented as of this encounter Additional Source Comments The information contained in this document represents components of the legal health record. It is not the complete legal health record.[facility]
--- NOTE | 2025-02-17 08:55 | MHC.OFFVIS ---
Intake Visit Reasons: bladder mass Intake Note: New Patient is present for BPH Bladder Mass Urology Rx:Tamsulosin, Meloxicam PVR:181 mls Blood Thinners:none Imaging completed: Abd/Pelvis CT w/o Contrast 01/27/25 Labs done : 04/17/24 ( pg16) PSA Total 3.1 Press Shop Supervisor Required: No Accompanied by: Self / Same As Patient Allergies No Known Allergies Allergy (Verified 02/17/25 09:03) HPI Comments Details: Davy is a pleasant male. Is a patient of Dr. Denny. He is seen for the following urologic conditions - bladder cancer Discovered during evaluation for microscopic hematuria CT scan 2.4 cm posterior wall mass Has not seen blood in his urine Prior exposures include [employer] [place] exposure in the [place] Plan completion CT urogram, cytology, TURBT Discussed TURBT today Review of Systems Const Reports as per HPI and Reports no additional complaints Card Reports as per HPI and Reports no additional complaints Resp Reports as per HPI and Reports no additional complaints GI Reports as per HPI and Reports no additional complaints Reports as per HPI Musc Reports no additional complaints and Reports as per HPI Neuro Reports no additional complaints and Reports as per HPI Physical Exam Const General: cooperative, healthy appearing, comfortable and no acute distress Orientation/consciousness: patient oriented x3 HEENT Face and sinus: Yes normal facial exam Mouth: moist mucous membranes Neck Neck: Yes normal visual inspection, Yes full ROM and Yes trachea midline Chest Chest palpation & inspection: normal inspection of the chest Resp Effort & Inspection: normal respiratory effort, able to speak in complete sentences and no respiratory distress GI Inspection: Yes normal to inspection Back/Spine/Pelvis Cervical Spine: normal cervical lordosis Thoracic/Lumbar Spine: thoracic and lumbar spine normal to inspection Skin General skin exam: no rashes or lesions noted Neuro General: patient oriented x3, tone normal and moves all extremities Extrem General: Yes normal to inspection and Yes capillary refill normal Office Procedures Post Void Residual Post Residual Void Post Void Residual (PVR): 181 [id number]-[id number] Void Residual by ultrasound Results AMB Urinalysis, Automated UA Leukoctes 0 Cheri/uL Last Edit by ZINA Morales on 02/17/25 09:05 UA Nitrite Negative Last Edit by ZINA Morales on 02/17/25 09:05 UA Urobilinogen 0.2 mg/dL Last Edit by Elena Maria CCMA on 02/17/25 09:05 UA Protein 0 mg/dL Last Edit by Elena Colon, CCMA on 02/17/25 09:05 UA pH 7.0 Last Edit by Elena Colon, CCMA on 02/17/25 09:05 UA Blood 0 Antony/uL Last Edit by Elena Colon, CCMA on 02/17/25 09:05 UA Specific [place] 1.005 Last Edit by Elena Colon, CCMA on 02/17/25 09:05 UA Ketone Negative Last Edit by Elena Colon, CCMA on 02/17/25 09:05 UA Bilirubin 0 mg/dL Last Edit by [facility] on 02/17/25 09:05 UA Glucose 0 mg/dL Last Edit by Elena Colon, [facility] on 02/17/25 09:05 Results Reviewed Results Reviewed: Laboratory Last Values Urine pH (Auto) 7.0 02/17/25 09:05 Specific [place] (Auto) 1.005 02/17/25 09:05 Urine Protein (Auto) 0 mg/dL 02/17/25 09:05 Glucose (UA)(Auto) 0 mg/dL 02/17/25 09:05 Urine Ketones (Auto) Negative 02/17/25 09:05 Urine Blood (Auto) 0 Antony/uL 02/17/25 09:05 Urine Nitrite (Auto) Negative 02/17/25 09:05 Urine Bilirubin (Auto) 0 mg/dL 02/17/25 09:05 Urine Urobilinogen (Auto) 0.2 mg/dL 02/17/25 09:05 Leukocyte Esterase (Auto) 0 Cheri/uL 02/17/25 09:05 Assessment & Plan Assessment & Plan (1) Bladder mass: Code(s): N32.89 - Other specified disorders of bladder Category: Medical Plan Transurethral resection of bladder tumor with/without adjuvant cytotoxic bladder installation We discussed the nature of the decision and reasonable options for performing the above surgery. Interventions include TURBT with or without intravesical administration of immunotherapy or cytotoxic medication. The relative uncertainties and benefits related to each alternate procedure were adequately discussed. General surgical risks including, but not limited to, pain, bleeding, infection, myocardial infarction, pulmonary embolus, deep vein thrombosis and cerebrovascular accident which may result in further hospitalization were discussed. Full disclosure of the procedure as well as all major risks, benefits and complications were discussed including but not limited to damage to the urethra or bladder neck, need for ureteric stenting, perforation of the bladder, chemical cystitis, chemical peritonitis, epididymitis, and meatal stenosis. The success rate of the procedure was discussed. Success of the procedure in the short-term does not necessarily guarantee that long-term success will be maintained. Suitable follow up will need to be maintained. The patient showed understanding of discussion and wishes to proceed as above. - TURBT with mitomycin-C cytarabine Orders: Orders CT urogram Today N389 - Other specified disorders of bladder FISH Bladder Cancer Today N389 - Other specified disorders of bladder Patient Instructions: This note is constructed using voice recognition software. While every effort has been made to ensure accuracy employee relations specialist errors may have been included. Imaging studies, laboratory and physical exam results were discussed and reviewed in detail. No major barriers to patient understanding were identified. An opportunity to ask questions regarding the treatment plan was provided. All questions were answered. The patient expressed understanding and agreement with the above treatment plan. The patient is aware they should contact our office by phone for worsening of their current condition or the appearance of new urologic symptoms. Compliance is encouraged with any medications and followup testing that is ordered. It is a privilege to participate in the urologic care of your patient. If you have any questions or concerns regarding treatment for the above conditions, or other urologic issues, please do not hesitate to contact me. The office telephone contact is [phone]. Sincerely, Dr Clarence Harris MD, [facility] - Urology Compassionate Specialist Care for the Genitourinary System Coding Level of Care Code New Pt Level 4 (20826) Diagnoses Bladder mass N32.89 CPT Codes Post Residual Void - PVR CPT Code: 80910-[id number] Void Residual by ultrasound ([id number])
== END 2025-02-17 09:23 | disposition home or self-care (01) ==
PROVIDERS: PCP Internal Medicine; Visit Provider Urology
DX: N32.89 Other specified disorders of bladder (principal)
CPT/HCPCS: 99204

== ENCOUNTER → 2025-02-17 08:17 | Outpatient (BNVA) | payer OTHER, SELFPAY | PROVIDERS: PCP Internal Medicine; Visit Provider Urology | DX: Z01.818 Encounter for other preprocedural examination (principal); N32.89 Other specified disorders of bladder | CPT/HCPCS: 51798; 99202 ==

== ENCOUNTER 2025-02-24 09:05 | Outpatient (REF) | payer OTHER, SELFPAY | END 2025-02-24 09:06 | disposition home or self-care (01) | LOC: HO.LAB 09:05 | PROVIDERS: Visit Provider Urology | DX: Z13.89 Encounter for screening for other disorder (principal) ==

== ENCOUNTER 2025-02-26 12:45 | Outpatient (REF) | payer OTHER, SELFPAY ==
[2025-02-26 13:52] LABS: Blood Urea Nitrogen 23 mg/dL (9-16); Estimated Glomerular Filt Rate > 60
--- OUTSIDE RECORDS SUMMARY | 2025-02-26 18:33 | XMS_ITS | Encounter Summary ---
Author Organization [facility] Address [address] [place] [address] Care Team Providers Care Brim Greaser Operator Name Role Phone Amador Denny Primary Care Provider [phone] Reason for Visit * Reason Comments Med Change Request Encounter Details Date Type Department Care Team (Late st Contact Info) Description 01/27/[address] Orthopedic Department [address] [place] [id number] Pasquale Hunt MD [address] [place] [place] [address] Social History Tobacco Use Types Packs/Day Years [...] Description 03/03/2025 1:45 PM EST Follow-Up [facility] [address] [facility] Orthopedic Department [address] [facility] [address] [place] [address] Pasquale Hunt MD [address] [place] [address] documented as of this encounter Visit Diagnoses Not on filedocumented in this encounter Care Teams Brim Greaser Operator Relationship Specialty Start Date End Date Amador Denny [address] [place] [id number] PCP - General Internal Medicine 04/23/24 documented as of this encounter
--- OUTSIDE RECORDS SUMMARY | 2025-02-26 18:33 | XMS_ITS | Encounter Summary ---
Author Organization [facility] Address [address] [place] [address] Care Team Providers Care Pilot Control Operator Helper Name Role Phone Amador Denny Primary Care Provider [phone] Encounter Details Date Type Department Care Team (Late Contact Info) Description 11/24/2024 myChart Message [facility] Case Management Department [address] [place] [address] Samreen Mendoza RN Medial equipment Social History [...] Info) Description 03/03/2025 1:45 PM EST Follow-Up [facility] [address] [facility] Orthopedic Department [address] [facility] [address] [place] [address] Pasquale Hunt MD [address] [place] [address] documented as of this encounter Visit Diagnoses Not on filedocumented in this encounter Care Teams Pilot Control Operator Helper Relationship Specialty Start Date End Date Amador Denny [address] [place] [address] PCP - General Internal Medicine 04/23/24 documented as of this encounter
--- OUTSIDE RECORDS SUMMARY | 2025-02-26 18:33 | XMS_ITS | Encounter Summary ---
Author Organization [facility] Address [address] [place] [address] Care Team Providers Care Center Hole Reamer Name Role Phone Amador Denny Primary Care Provider [phone] Reason for Visit * Reason Onset Date Comments Dental Protocol 02/04/2025 Encounter Details Date Type Department Care Team (Late st Contact Info) Description 02/04/[address] Orthopedic Department [address] [address] Pasquale Hunt MD [address] [place] [address] Dental Protocol Social History Tobacco Use Types [...] transferred call from Davy and relayed Dr. Hutn's reply * Telephone Encounter - Ryan Ríos [place] - 02/05/2025 9:14 AM EDT LVM for Davy @[phone] to c/b [phone] Pasquale Hunt MD 02/05/25 8:55 AM No need for dental prophylaxis * Telephone Encounter - Ryan Ríos [place] - 02/04/2025 2:11 PM EDT TOTAL HIP ARTHROPLASTY [[id number] (CPT??)] * Telephone Encounter - Anushka Mccullough - 02/04/2025 1:[address] Hunt, Patient called inquiring about the dental protocol post op 01/01. Please advise. Patient call back # [phone] documented in this encounter Plan of Treatment Upcoming Encounters Date Type Department Care Team (Late st Contact Info) Description 03/03/2025 1:45 PM EST Follow-Up [address] Orthopedic Department [address] [place] [address] Pasquale Hunt MD [address] [place] [address] documented as of this encounter Visit Diagnoses Not on filedocumented in this encounter Care Teams Center Hole Reamer Relationship Specialty Start Date End Date Amador Denny [address] [place] [address] PCP - General Internal Medicine 04/23/24 documented as of this encounter
--- OUTSIDE RECORDS SUMMARY | 2025-02-26 18:33 | XMS_ITS | Clinical Summary ---
Author Organization [facility] Address [address] [place] [address] Care Team Providers Care Food Quality Tester Name Role Phone Amador Denny Primary Care Provider [phone] Allergies No known active allergies Medications Vitamin [...] Type Department Care Team Description 02/05/[address] Orthopedic Department [address] [place] [address]10 Pasquale Hunt MD Dentist appointment 02/04/[address] Orthopedic Department [address] [place] [address] 740[address] Pasquale Hunt MD Dental Protocol 01/30/[address] Orthopedic Department [address] [place] [address] 6[address] Pasquale Hunt MD Letters and Forms 01/27/[address] Orthopedic Department [address] [place] [address] 02683 Pasquale Hunt MD 01/26/[address] Orthopedic Department [address] [place] [address] 03113 Pasquale Hunt MD FYI 01/20/2025 1:30 PM EDT Follow-Up [address] Orthopedic Department [address] [place] [address] 18395 Pasquale Hunt MD Status post total replacement of right hip (Primary Dx) 01/05/2025 9:59 AM EDT Anesthesia Event [facility] [place] [address] [place] [address] 78347 Clarence Mckeon MD Petka, Kally Ann, NP 01/05/2025 9:50 AM EDT - 01/05/2025 12:30 PM EDT Surgery [facility] [place] [address] [place] [address] 85222 Pasquale Hunt MD TOTAL HIP ARTHROPLASTY [[id number] (CPT )] 01/05/2025 8:01 AM EDT - 01/05/2025 3:30 PM EDT Hospital Encounter [facility] [place] [address] [place] [address] 16697 Pasquale Hunt MD Primary osteoarthritis of right hip (Primary Dx) Discharge Disposition: Home with Services (06) 01/01/2025 myChart Message [facility] Case Management Department [address] [place] [address] 07428 Samreen Mendoza RN venapro 12/19/2024 1:45 PM EDT Evaluation [facility] [address] Physical Therapy Department [address] [place] [address] Jaclyn Cheng, PT Pain of right hip (Primary Dx) from Last 3 Months Immunizations Immunization Administration [...] Info) Description 03/03/2025 1:45 PM EST Follow-Up [address] Orthopedic Department 94 [facility] 1[address] [place] [address] Pasquale Hunt MD [address] [place] [address] Health Maintenance Due Date Last Done Comments Cologuard 1962 Colon Cancer Screening 1962 Colonoscopy 1962 FOBT / Fit Test 1962 HIV Screening 1962 Hepatitis C Screening 1962 Sigmoidoscopy 1962 Pneumococcal Vaccine: 50+ Years (1 of 2 - PCV) 1981 DTaP,Tdap,and Td Vaccines (1 - Tdap) 01/18/1984 CT Lung Cancer Screening (Baseline) 01/18/2012 Zoster Vaccines (1 of 2) 01/18/2012 Alcohol/Substance Use Screening 04/09/2024 Depression Screening and Follow-Up 04/09/2024 Social Drivers of Health Annual Screening 04/09/2024 COVID-19 Vaccine ( season) 2024 02/03/2021, 05/27/2020 Diabetes Screening 12/11/2027 12/10/2024 RSV Vaccine (60+ years old and patients) (1 - 1-dose 75+ series) 2037 Influenza Vaccine Completed 01/19/2025, , 12/24/2017, Additional history exists Hepatitis B Vaccines Aged Out No long er eligible based on patient's age to complete this topic Medical Devices Implanted Type Area Grinder Hand Device Identifier Shelf Expiration Date Model / Serial / Lot Shell Acetabular [place] Sector Gription 58mm [place] - [id number] Implanted:Qty: 1 on 01/05/2025 by Pasquale Hunt MD at [facility] Implant Right: Hip DEPUY 05/09/2034 1217-32-0 58 / / [id number] Liner Acetabular 10 Degree Polyethylene [id number] 4mm [place] Altrx - [id number] Implanted:Qty: 1 on 01/05/2025 by Pasquale Hunt MD at [facility] Implant Right: Hip DEPUY 10/06/2029 1221-40-1 58 / / [id number] Stem Femoral Stem Standard Neck 36x8l [id number] Srom Ceramax - [id number] Implanted:Qty: 1 on 01/05/2025 by Pasquale Hunt MD at [facility] Implant Right: Hip DEPUY 03/08/2029 [id number] / / [id number] Head Femoral 02/19 Taper S-Rom M-Spec Metal 40mmxplus 0mm [place] - [id number] Implanted:Qty: 1 on 01/05/2025 by Pasquale Hunt MD at [facility] Implant Right: Hip DEPUY 10/07/2027 1365-42-5 00 / / [id number] Screw Acetabular Cancellous Dome Stainless Steel 6.0nau68ll [place] - [id number] Implanted:Qty: 1 on 01/05/2025 by Pasquale Hunt MD at [facility] Screw Right: Hip DEPUY 09/06/2034 1217-35-5 00 / / [id number] S-Rom Modular Hip System Zti Proximal Sleeve Porous Coated Fits: 20 X 15 Stem Cone: B [place]: Lrg Implanted:Qty: 1 on 01/05/2025 by Pasquale Hunt MD at [facility] Right: Hip DEPUY [employer]ES SALES 05/09/2026 52-1405 / / [id number] Procedures * Due to [place] state law, this organization might not be sharing negative HIV tests. Procedure Name Priority Date/Time Associated Diagnosis Comments XR HIP RIGHT 2+ VW W PELVIS Routine 01/20/2025 1:44 PM EDT Status post total replacement of right hip XR HIP RIGHT 1 VIEW W PELVIS Routine 01/05/2025 12:59 PM EDT SPINAL BLOCK Routine 01/05/2025 10:34 AM EDT [place] TOTAL HIP ARTHROPLASTY 01/05/2025 10:04 AM EDT [...] Last 3 Months Results * Due to [place] state law, this organization might not be sharing [...] to obtain the completed interpretation. Workstation ID: [id number] Narrative 01/05/2025 4:58 PM EDT COMPARISON: 10/23/2024. Resulting Agency Comment [id number] Procedure Note Abdon Krishnan MD - 01/05/2025 [...] possible to obtain thecompleted interpretation. Workstation ID: [id number] us Pasquale Hunt MD IMG XR PROCEDURES [...] EKG Atrial Rate 66 BPM MUSE EKG KS Interval 146 ms MUSE EKG QRS Interval 82 ms MUSE EKG QT Interval 374 ms MUSE EKG QTC Interval 392 ms MUSE EKG P [place] 70 degrees MUSE EKG R [place] 34 degrees MUSE EKG T Wave [place] -9 degrees MUSE EKG 12/22/2024 12:5 8 PM EDT 12/22/2024 1:38 PM EDT Impressions MUSE EKG - 12/22/2024 1:38 PM EDT Normal sinus rhythm Nonspecific T wave abnormality No previous ECGs available Confirmed by Anju Hayes ([id number]) on 12/22/2024 1:38:45 PM Narrative Procedure Note Anju Hayes MD - 12/22/2024 IMPRESSION: Normal sinus rhythm Nonspecific T wave abnormality No previous ECGs available Confirmed by Anuj Hayes ([id number]) on 12/22/2024 1:38:45 PM us Tiki Newby NP ECG ORDERABLES Final Result MUSE EKG * Methicillin Resistant Staphylococcus aureus (MRSA) Culture Screen (12/22/2024 12:49 PM EDT) Only the most recent of2 resultswithin the time period is included. MRSA Culture No methicillin resistant Staphylococcus aureus (MRSA) isolated. [place] [facility] 12/25/2024 10:45 AM EDT [facility] Swab Inguinal region structure / Unknown Non-Blood Collection / Unknown 12/22/2024 12:49 PM EDT 12/22/2024 12:58 PM EDT us Tiki Newby NP LAB MICROBIOLOGY - GENERAL OR DERABLES Final Result [facility] [address] [place] [address] [address] [place] [address], [place] [phone] * (ABNORMAL) CBC Auto Differential (12/10/2024 3:18 PM EDT) [facility] WBC 8.0 4.8 - 10.8 10*3/uL 12/10/2024 3:37 PM EDT [facility] RBC 4.16(L) 4.70 - 6.10 10*6/uL 12/10/2024 3:37 PM EDT [facility] Hemoglobin 12.7(L) 13.7 - 16.5 g/dL 12/10/2024 3:37 PM EDT [facility] Hematocrit 36.1(L) 40.5 - 48.5 % 12/10/2024 3:37 PM EDT [facility] MCV 86.8 80.0 - 94.0 fL 12/10/2024 3:37 PM EDT [facility] MCH 30.5 26.0 - 34.0 pg 12/10/2024 3:37 PM EDT [facility] MCHC 35.2 31.0 - 36.0 g/dL 12/10/2024 3:37 PM EDT [facility] RDW 12.9 12.0 - 15.0 % 12/10/2024 3:37 PM EDT [facility] RDW Standard Deviation 40.7 35.1 - 43.9 fL 12/10/2024 3:37 PM EDT [facility] Platelets 291 140 - 440 10*3/uL 12/10/2024 3:37 PM EDT [facility] MPV 9.4 9.4 - 12.4 fL 12/10/2024 3:37 PM EDT [facility] Neutrophil % 64.3 50.0 - 75.0 % 12/10/2024 3:37 PM EDT [facility] Immature Grans % 0.3 0.0 - 0.9 % 12/10/2024 3:37 PM EDT [facility] Lymphocyte % 22.3 20.0 - 44.0 % 12/10/2024 3:37 PM EDT [facility] Monocyte % 10.7 0.0 - 14.0 % 12/10/2024 3:37 PM EDT [facility] Eosinophil % 1.9 0.0 - 5.0 % 12/10/2024 3:37 PM EDT [facility] Basophil % 0.5 0.0 - 2.0 % 12/10/2024 3:37 PM EDT [facility] Neutrophil # 5.12 1.80 - 7.70 10*3/uL 12/10/2024 3:37 PM EDT [facility] Immature Grans # <0.03 0.00 - 0.03 10*3/uL 12/10/2024 3:37 PM EDT [facility] Lymphocyte # 1.80 1.00 - 4.75 10*3/uL 12/10/2024 3:37 PM EDT [facility] Monocyte # 0.90(H) 0.00 - 0.60 10*3/uL 12/10/2024 3:37 PM EDT [facility] Eosinophil # 0.20 0.00 - 0.80 10*3/uL 12/10/2024 3:37 PM EDT [facility] Basophil # <0.03 0.00 - 0.20 10*3/uL 12/10/2024 3:37 PM EDT [facility] nRBC % 0.0 0 - 0 /100 WBCs 12/10/2024 3:37 PM EDT [facility] nRBC # <0.01 0.00 - 0.13 10*3/uL 12/10/2024 3:37 PM EDT [facility] Blood Structure of peripheral vein / Unknown Venipuncture / Unknown 12/10/2024 3:18 PM EDT 12/10/2024 3:29 PM EDT us Pasquale Hunt MD LAB BLOOD ORDERABLES Final Result [facility] [address] [place] [address] [address] [place] [address], * Albumin (12/10/2024 3:18 PM EDT) Albumin 4.3 3.5 - 5.0 g/dL 12/10/2024 4:01 PM EDT [facility] Blood Structure of peripheral vein / Unknown Venipuncture / Unknown 12/10/2024 3:18 PM EDT 12/10/2024 3:30 PM EDT us Pasquale Hunt MD LAB BLOOD ORDERABLES Final Result [facility] [address] [place] [address] [address] [place] [address], [place] [phone] * (ABNORMAL) Basic Metabolic Panel (12/10/2024 3:18 PM EDT) NA 138 136 - 145 mmol/L 12/10/2024 4:01 PM EDT [facility] K 4.1 3.5 - 5.1 mmol/L 12/10/2024 4:01 PM EDT [facility] Cl 106 98 - 109 mmol/L 12/10/2024 4:01 PM EDT [facility] CO2 20(L) 22 - 32 mmol/L 12/10/2024 4:01 PM EDT [facility] BUN 25(H) 8 - 23 mg/dL 12/10/2024 4:01 PM EDT [facility] Creatinine 1.05 0.50 - 1.12 mg/dL 12/10/2024 4:01 PM EDT [facility] Glucose 85 60 - 99 mg/dL 12/10/2024 4:01 PM EDT [facility] Calcium 9.4 8.4 - 10.4 mg/dL 12/10/2024 4:01 PM EDT [facility] Anion Gap 16 >=0 12/10/2024 4:01 PM EDT [facility] eGFR 80 >=60 mL/min/1. 73m2 12/10/2024 4:01 PM EDT [facility] Comment:The estimated glomer ular filtration rate (eGFR) is calculated using a new formula developed by the NKF-ASN task force to eliminate race-based correction factors. The new formula uses serum/plasma creatinine, age, and gender to determine eGFR. A value below 60mls/min might indicate kidney disease and will be flagged. For additional information, see Yanick et al, Am J Kidney Dis. 2021;79(2):268- 288, A Unifying Approach for GFR estimation: Recommendations of the NKF-ASN Task Force on Reassessing the Inclusion of Race in Diagnosing Kidney Disease . Blood Structure of peripheral vein / Unknown Venipuncture / Unknown 12/10/2024 3:18 PM EDT 12/10/2024 3:30 PM EDT us Pasquale Hunt MD LAB BLOOD ORDERABLES Final Result [facility] [address] [place] [phone], from Last 3 Months Insurance [employer] on file [employer] Advance Directives Documents on File Type Date Recorded Patient Mainspring Former Expl [facility] Care Proxy 12/10/2024 5:20 PM HCP * Full Code (Latest Code Status on File) Date Activated Date Inactivated Comments 01/05/2025 8:03 AM 01/06/2025 9:42 AM Care Teams Food Quality Tester Relationship Specialty Start Date End Date Amador Denny [address] [place] [address] PCP - General Internal Medicine 04/23/24
--- OUTSIDE RECORDS SUMMARY | 2025-02-26 18:33 | XMS_ITS | Encounter Summary ---
Author Organization [facility] Address [address] [place] [address] Care Team Providers Care Operations Trainer Name Role Phone Amador Denny Primary Care Provider [phone] Encounter Details Date Type Department Care Team (Late st Contact Info) Description 10/28/2024 Saraf Foodst Message [facility] [place] [address] [place] [address] [email or web address], Generic Provider [address] [place] [phone] Questionnaire Submission Social History Tobacco Use Types [...] Info) Description 03/03/2025 1:45 PM EST Follow-Up [facility] 94 [facility] Orthopedic Department 94 [facility] [address] [place] [address] Pasquale Hunt MD [address] [place] [address] documented as of this encounter Visit Diagnoses Not on filedocumented in this encounter Care Teams Operations Trainer Relationship Specialty Start Date End Date Amador Denny [address] [place] [address] PCP - General Internal Medicine 04/23/24 documented as of this encounter
--- OUTSIDE RECORDS SUMMARY | 2025-02-26 18:33 | XMS_ITS | Encounter Summary ---
Author Organization [facility] Address [address] [place] [address] Care Team Providers Care Cop Breaker Name Role Phone Amador Denny Primary Care Provider [phone] Encounter Details Date Type Department Care Team (Late st Contact Info) Description 01/01/2025 myChart Message [facility] Case Management Department [address] [place] [address] Samreen Mendoza RN venapro Social History Tobacco [...] Info) Description 03/03/2025 1:45 PM EST Follow-Up [facility] 94 [facility] Orthopedic Department 94 [facility] [address] [place] [address] Pasquale Hunt MD [address] [place] [address] documented as of this encounter Visit Diagnoses Not on filedocumented in this encounter Care Teams Cop Breaker Relationship Specialty Start Date End Date Amador Dneny [address] [place] [address] PCP - General Internal Medicine 04/23/24 documented as of this encounter
--- OUTSIDE RECORDS SUMMARY | 2025-02-26 18:33 | XMS_ITS | Encounter Summary ---
Author Organization [facility] Address [address] [place] [address] Care Team Providers Care Technology Administrator Name Role Phone Amador Denny Primary Care Provider [phone] Encounter Details Date Type Department Care Team (Late st Contact Info) Description 11/22/2024 myChart Message [facility] Case Management Department [address] [place] [address] Samreen Mendoza RN Request for Recovery Equipment [...] Info) Description 03/03/2025 1:45 PM EST Follow-Up [facility] 94 [facility] Orthopedic Department 94 [facility] [address] [place] [address] Pasquale Hunt MD [address] [place] [address] documented as of this encounter Visit Diagnoses Not on filedocumented in this encounter Care Teams Technology Administrator Relationship Specialty Start Date End Date Amador Denny [address] [place] [address] PCP - General Internal Medicine 04/23/24 documented as of this encounter
--- OUTSIDE RECORDS SUMMARY | 2025-02-26 18:33 | XMS_ITS | Encounter Summary ---
Author Organization [facility] Address [address] [place] [address] Care Team Providers Care Entrance Guard Name Role Phone Amador Denny Primary Care Provider [phone] Encounter Details Date Type Department Care Team (Late st Contact Info) Description 11/25/2024 myChart Message [facility] Case Management Department [address] [place] [address] Samreen Mendoza RN equipmenet Social History Tobacco [...] Info) Description 03/03/2025 1:45 PM EST Follow-Up [facility] Orthopedic Department 94 [facility] [address] [place] [address] Pasquale Hunt MD [address] [place] [address] documented as of this encounter Visit Diagnoses Not on filedocumented in this encounter Care Teams Entrance Guard Relationship Specialty Start Date End Date Amador Denny [address] [place] [address] PCP - General Internal Medicine 04/23/24 documented as of this encounter
== END 2025-02-26 12:46 | disposition home or self-care (01) ==
LOC: HO.LAB 12:45
PROVIDERS: PCP Internal Medicine; Visit Provider Urology
DX: N32.89 Other specified disorders of bladder (principal)
CPT/HCPCS: 36415; 82565; 84520

== ENCOUNTER 2025-04-07 12:25 | Outpatient (REF) | payer OTHER, SELFPAY ==
--- OUTSIDE RECORDS SUMMARY | 2024-12-02 11:15 | XMS_ITS ---
[facility] Address [address] [place] [address] Care Team Providers Care Wastewater Operator Name Role Phone Amador Denny Primary Care Provider Allergies No Known Allergies REASON FOR VISIT (IN OFFICE), Follow Up Medications Medication SIG (Take, Route, Frequency, Duration) Notes Start Date End Date Status Meloxicam 15 MG Tablet 1 tablet Orally O nce a day; Duration: 30 day(s) Active Vitamin D3 125 MCG (5000 UT) Capsule 1 capsule Orally Once a day; Duration: 90 Days Active Alfuzosin HCl ER 10 MG Tablet Extended Release 24 Hour 1 tablet immediately after the same meal Orally Once a day; Duration: 30 day(s) Activ e Nicoderm CQ 7 MG/24HR Patch 24 Hour 1 patch to skin Transdermal Once a day; Duration: 30 day(s) Active Social History Tobacco Use: Social History Observation Description Date Details (start date - stop date) Former Smoker NA - NA Social History Drugs/Alcohol: Social Info Question Answer Notes Drugs Have you used drugs other than those for medical reasons in the past 12 months? No Alcohol Screen Did you have a drink containing alcohol in the past year? Yes How often did you have a drink containing alcohol in the past year? 2 to 3 times a week (3 points) Points 3 Interpretation Negative Tobacco Use: Social Info Question Answer Notes Tobacco Use/Smoking Are you a former smoker Encounters Encounter Location Date Provider Diagnosis edson Elias [address] [place] [address] 12/02/2024 Amador Denny Status post right kn ee replacement Z96.651 ; Primary osteoarthritis of right hip M16.11 ; Acute pain of right knee M25.561 ; Benign prostatic hyperplasia with lower urinary tract symptoms N40.1 and Vitamin D deficiency E55.9 Assessments Encounter Date Diagnosis (ICD Code) Assessment Notes Treatment Notes Treatment Clinical Notes Section Notes 12/02/2024 Status post right knee replacement (ICD-10 - Z96.651) 12/02/2024 Primary osteoarthritis of right hip (ICD-10 - M16.11) 12/02/2024 Acute pain of right knee (ICD-10 - M25.561) 12/02/2024 Benign prostatic hyperplasia with lower urinary tract symptoms (ICD-10 - N40.1) 12/02/2024 Vitamin D deficiency (ICD-10 - E55.9) 12/02/2024 Other This chart has been transcribed by a computerized dictation system. There are likely to be multiple assistant child care teacher inaccuracies despite chart review. Plan Of Treatment Medication Medication Name Sig Start Date Stop Date Notes Meloxicam 15 MG Tablet 1 tablet Orally O nce a day; Duration: 30 day(s) Vitamin D3 125 MCG (5000 UT) Capsule 1 capsule Orally Once a day; Duration: 90 Days Alfuzosin HCl ER 10 MG Table t Extended Release 24 Hour 1 tablet immediately after the same meal Orally Once a day; Duration: 30 day(s) Treatment Notes Assessment Notes Other This chart has been transcribed by a computerized dictation system. There are likely to be multiple assistant child care teacher inaccuracies despite chart review. Next Appt Details Provider Name:Marissa Powell i, 05/25/2025 03:15:00 PM, [address] [place] [address], [phone], History and Physical Notes * HPI (History [...] to follow with Dr. Holt from the [place] for his care as well. I have asked that all notes be shared with this office. His blood pressure is well controlled. He denies chest pain, palpitations and shortness of breath. Examination Category Sub-Category Detail Notes Category Not es General Examination GENERAL APPEARANCE: in no ac [place] distress, well developed, well nourished HEAD: normocephalic, [...] palate normal, tongue in midline, well papillated Progress Notes * Davy NOBLEDOB:[birth year] (65 yo M)Acc No.[id number]:12/02/2024 Patient: Davy Najera Provider: Amalia Denny M.D. :1960 A ge:64 Y S ex:Male Date:12/02/2024 Address:[address] [place] [address] [address] [place], [id number] Subjective: * Chief Complaints: * ( IN OFFICE), Follow Up * HPI: S ymptom(s): 64-year-old male patient with history of DJD, status post [...] future. He continues to follow with Dr. oHlt from the [place] for his care as well. I have asked that all notes be shared with this office. His blood pressure is well controlled. He denies chest pain, palpitations and shortness of breath. . * ROS: G eneral/Constitutional: Fever d enies. D izziness d enies. F atigue?admits. C hange in appetite d enies. E ndocrine: Weight loss d enies. W eight gain d enies. E xcessive thirst d enies. R espiratory: Cough d enies. C ongestion d enies. W heezing?denies. S putum production d enies. C ardiovascular: Chest pain d enies. D yspnea on exertion d enies.?Edema d enies. P alpitations d enies. G astrointestinal: Abdominal pain d enies. H eartburn d enies. N ausea d enies. V omiting d enies. C hange in bowel habits d enies. B RBPR?denies. D ysphagia d enies. H ematology: Easy bruising d enies. E nlarged glands d enies.? G enitourinary: Frequent urination d enies. P ainful urination d enies. I ncontience d enies. B lood in urine d enies. N octuria d enies. ? M usculoskeletal: C/D/L pain d enies. B fernanda aches d enies. J oint pain a dmits. S ciatica d enies. S kin: Rash d enies. I tching d enies. S kin lesion(s)?denies. H amelia d enies. N eurologic: Weakness d enies. S eizures d enies. H eadache?denies. T ingling/Numbness d enies. M anival loss d enies. T remor d enies. P sychiatric: Depressed mood d enies. A nxiety d enies. P anic attacks d enies. D ifficulty sleeping d enies. * Medical History: No Medical History Documented Medical History Verified * Surgical History: Right Total Knee Replacement 2022 Surgical History verified. * Hospitalization/Major Diagno stic Procedure: For Above Procedure Hospitalization Verified. * Family History: F ather: alive 85 yrs, COPD. M other: 35 yrs, Depression. 1 daughter(s) - healthy. . F amily History Verified.. * Social History: T obacco Use: T obacco Use/Smoking A re you a f ormer smoker D rugs/Alcohol: D rugs H ave you used drugs other than those for medical reasons in the past 12 months? N o Alcohol Screen D id you have a drink containing alcohol in the past year? Y es H ow often did you have a drink containing alcohol in the past year? 2 to 3 times a week (3 points) P oints 3 I nterpretation N egative S ocial History Verified. * Medications: T akingVitamin D3 125 MCG (5000 UT) Capsule 1 capsule Orally Once a day Meloxicam 15 MG Tablet 1 tablet Orally Once a day Alfuzosin HCl ER 10 MG Tablet Extended Release 24 Hour 1 tablet immediately after the same meal Orally Once a day Nicoderm CQ 7 MG/24HR Patch 24 Hour 1 patch to skin Transdermal Once a day Medication List reviewed and reconciled with the patientTaking Vitamin D3 125 MCG (5000 UT) Capsule 1 capsule Orally Once a day Taking Meloxicam 15 MG Tablet 1 tablet Orally Once a day Taking Alfuzosin HCl ER 10 MG Tablet Extended Release 24 Hour 1 tablet immediately after the same meal Orally Once a day Taking Nicoderm CQ 7 MG/24HR Patch 24 Hour 1 patch to skin Transdermal Once a day Medication List reviewed and reconciled with the patient * Allergies: Wilder .PatsyAllergies Verified. Objective: * Examination: G eneral Examination: GENERAL APPEARANCE: i n no acute distress, well developed, well nourished. HEAD: n ormocephalic, atraumatic. EYES: p upils equal, round, reactive to light and accommodation. ORAL CAVITY: m [place] moist, no lesions, palate normal, tongue in midline, well papillated. THROAT: c lear, no erythema, uvula midline, no exudate.? NECK/THYROID: n jourdan supple, no thyromegaly, trachea midline, no carotid bruit. LYMPH NODES: n o cervical, axillary, supraclavicular or inguinal adenopathy. SKIN: n o suspicious lesions, warm and dry. HEART: n o murmurs, regular rate and rhythm, S1, S2 normal.? LUNGS: c lear to auscultation bilaterally. ABDOMEN: s oft, nontender, nondistended, no organomegaly , bowel sounds present. MUSCULOSKELETAL: t enderness and swelling to right knee, temperature normal. EXTREMITIES: n o clubbing, cyanosis, or edema. PERIPHERAL PULSES: n ormal, 2+ throughout. NEUROLOGIC: a lert and oriented x3, nonfocal. PSYCH: c ognitive function intact, mood/affect full range.? Assessment: * Assessment: 1. P rimary osteoarthritis of right hip - M16.11 (Primary) 2 . S tatus post right knee replacement - Z96.651 3 . A cute pain of right knee - M25.561 ? 4 . B enign prostatic hyperplasia with lower urinary tract symptoms - N40.1 5 . V itamin D deficiency - E55.9 Plan: * Treatment: 2. B enign prostatic hyperplasia with lower urinary tract symptoms Start Alfuzosin HCl ER Tablet Extended Release 24 Hour, 10 MG, 1 tablet immediately after the same meal, Orally, Once a day, 30 day(s), 30, Refills 0. 3. V itamin D deficiency Continue Vitamin D3 Capsule, 125 MCG (5000 UT), 1 capsule, Orally, Once a day, 90 Days, 90 Capsule, Refills 3. 4. O thers Notes: This chart has been transcribed by a computerized dictation system. There are likely to be multiple assistant child care teacher inaccuracies despite chart review. Billing Information: * Procedure Codes: * The named appointment provid er may or may not be the originator of this progress note, and it is not deemed complete until electronically signed by the appointment provider. Sign off status: Pending * Provider: Amalia Denny M.D. Date: 0 12/02/2024 Generated for Alfonso shaffer/Stephanie/Larissa on: 1 04:22 PM EST
--- OUTSIDE RECORDS SUMMARY | 2025-02-25 11:15 | XMS_ITS ---
Author Organization [facility] Address [address] [place] [address] Care Team Providers Care Assault Amphibious Vehicle Crewman Name Role Phone Amador Denny Primary Care Provider [phone] REASON FOR VISIT (IN OFFICE), Follow Up Encounters Encounter Location Date Provider Diagnosis [facility] [address] [place] [address] 02/26/20 25 Amador Denny Plan Of Treatment Next Appt Details Provider Name:Marissa Powell i, 05/25/2025 03:15:00 PM, [address] [place] [address], [phone], Progress Notes * Davy NOBLEDOB:[birth year] (65 yo M)Acc No.[id number]:02/25/2025 Patient: Davy Najera Provider: Amalia Denny M.D. :1960 A ge:65 Y S ex:Male Date:02/25/2025 Address:[address] [id number] Subjective: * Chief Complaints: * ( IN OFFICE), Follow Up * The named appointment provid er may or may not be the originator of this progress note, and it is not deemed complete until electronically signed by the appointment provider. Sign off status: Pending * Provider: Amalia Denny M.D. Date: 1 04/27/2024 Generated for Alfonso shaffer/Stephanie/Larissa on: 1 04:23 PM EST
--- NOTE | ~2025-04-07 | CT_ITS ---
EXAMINATION: CT ABDOMEN AND PELVIS WITHOUT AND WITH CONTRAST CLINICAL INFORMATION: Other specified disorders of bladder. COMPARISON: No prior. TECHNIQUE: Noncontrast CT of the abdomen and pelvis is performed followed by split bolus contrast-enhanced images using 85 mL Omnipaque 350 contrast. Postcontrast imaging is performed during the combined nephrogram and excretion phase. Sagittal and coronal reformatted images were obtained on the technologist's workstation for both the precontrast and postcontrast phases. This CT examination was performed using dose optimization techniques as appropriate, variously including the following: *Automated exposure control *Adjustment of mA and/or kV according to patient size (this includes techniques or standardized protocols for targeted exams where dose is matched to indication/reason for exam; i.e. extremities or head) *Use of iterative reconstruction technique FINDINGS: LUNG BASES: Imaged lung bases are clear. Heart size is normal. GE junction is normal. LIVER, GALLBLADDER, AND BILIARY TREE: The liver is normal in size, shape, and attenuation. There are 2 small hypoattenuating cysts in segment 2. There is no additional focal hepatic abnormality. No biliary ductal dilatation is present. The gallbladder is unremarkable with no evidence of radiopaque gallstones, gallbladder wall thickening, or obvious pericholecystic inflammatory changes. PANCREAS: Unremarkable. SPLEEN: Unremarkable. ADRENAL GLANDS: There is a 1.7 cm adenoma in the right gland. There is a 1.7 cm adenoma in the left gland as well. KIDNEYS AND URETERS: The kidneys are normal in size, shape, and attenuation. No hydronephrosis, hydroureter, or calculi seen. No perinephric stranding. No pyelocalyceal filling defects identified after the administration of contrast. Ureters are normal in caliber bilaterally. BLADDER: Mildly limited due to streak artifact from a right hip replacement. Otherwise the bladder has a normal appearance on both the precontrast and postcontrast acquisitions. GASTROINTESTINAL TRACT: The stomach, duodenum, small bowel, appendix, and colon image normally. No wall thickening or inflammation. Mild diverticulosis of the sigmoid is incidentally noted. There is no rectal abnormality. ABDOMINAL WALL: There are small fat-containing inguinal hernias right greater than left. There is atrophy of the right inferior rectus muscle, uncertain etiology. LYMPH NODES: No abnormal lymphadenopathy present. VASCULAR: Moderate atheromatous calcification of the aorta and iliac arteries, without evidence of aneurysm. PELVIC VISCERA: The prostate is obscured by streak artifact from right hip replacement. Suspect prostate enlargement. OSSEUS STRUCTURES: There is no suspicious lytic or blastic bone lesion present. There are moderate degenerative changes throughout the imaged spine, with facet arthrosis most significant at L3-S1. 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 Right hip replacement in place without complication. Mild to moderate degenerative arthrosis left hip joint. CT/CT urogram IMPRESSION: 1. No evidence of urological calculus, mass, obstruction, or other significant abnormality. Normal-appearing urinary bladder. 2. There are bilateral adrenal adenomas measuring 1.7 cm each. 3. Additional ancillary findings as discussed in the body of the report. Electronically signed by: Abdon Berumen MD 04/07/2025 01:51 PM [facility]
[2025-04-07] MEDS: iohexoL 350 MG/ML 100 ML INFUS..BTL IV (13:30)
[2025-04-07 14:55] LABS: Creatinine POC 0.9 mg/dL (0.5-1.4); GFR POC > 60
--- OUTSIDE RECORDS SUMMARY | 2025-04-07 16:23 | XMS_ITS | Encounter Summary ---
Author Organization [facility] Address [address] [facility] [address] [place] [address] Phone Care Team Providers Care Agency Recruiter Name Role Phone Steve Toscano MD Primary Care Provider Encounter Details Date Type Department Care Team (Latest Contact Info) Description 05/26/2021 Transcribe Orders [address] [address] Fior Jay [address] [place] [address] [email or web address] Abnormal blood chemistry (Primary Dx) Social [...] EST) SODIUM 139 136 - 145 mmol/L [facility] CHLORIDE 105 95 - 106 mmol/L [facility] POTASSIUM 4.5 3.5 - 5.2 mmol/L [facility] CO2 21 20 - 31 mmol/L [facility] BUN 20 9 - 23 mg/dL [facility] CREATININE 0.98 0.50 - 1.30 mg/dL [facility] GLUCOSE 77 74 - 106 mg/dL [facility] CALCIUM 9.4 8.7 - 10.4 mg/dL [facility] EGFR 89 >60 mL/min/1.7 3m2 [facility] Comment:Estimated glomerular filtration rate calculated using the CKD-EPI refit equation. ANION GAP 13 3 - 17 mmol/L [facility] Blood 05/26/2021 1:14 PM EST 05/26/2021 4:31 PM EST us Ernestina Pal MD LAB BLOOD BKR ORDER KAROLINA Final Result [facility] [address] [place] [address] * CBC and differential (05/26/2021 1:14 PM EST) WBC 7.77 4.0 - 11.0 K/uL [facility] RBC 4.81 4.32 - 5.72 M/uL [facility] HGB 14.5 13.5 - 17.5 g/dL [facility] HCT 43.0 38 - 50 % [facility] PLT 310 135 - 400 K/uL [facility] MCV 89.4 80 - 100 fL [facility] MCH 30.1 27 - 34 pg [facility] MCHC 33.7 31.5 - 36.5 g/dL [facility] RDW 12.6 11.9 - 14.8 % [facility] MPV 9.9 9.7 - 11.9 fl [facility] NRBC 0.00 0 /100 WBCs [facility] DIFF METHOD Auto [facility] NEUTS 62.9 % [facility] LYMPHS 22.5 % [facility] MONOS 11.5 % [facility] EOS 2.1 % [facility] BASOS 0.6 % [facility] Granulocytes, immature (%) 0.4 % [facility] ABSOLUTE NEUTS 4.89 1.8 - 7.5 K/uL [facility] ABSOLUTE LYMPHS 1.75 1 - 4.8 K/uL [facility] ABSOLUTE MONOS 0.89 0.1 - 0.9 K/uL [facility] ABSOLUTE EOS 0.16 0 - 0.4 K/uL [facility] ABSOLUTE BASOS 0.05 0 - 0.2 K/uL [facility] Granulocytes, immature 0.03 0 - 0.1 K/uL [facility] Blood 05/26/2021 1:14 PM EST 05/26/2021 4:07 PM EST us Ernestina Pal MD LAB BLOOD BKR ORDER KAROLINA Final Result Performing Organization Address City/State/[facility] Co de Phone Number [facility] [address] [place] [address] documented in this encounter Visit Diagnoses Diagnosis Abnormal blood chemistry- Primary Other abnormal blood chemistry documented in this encounter Care Teams Agency Recruiter Relationship Specialty Start Date End Date Steve Toscano MD [address] [place] [address] PCP - General 09/07/20 documented as of this encounter Additional Source Comments The information contained in this document represents components of the legal health record. It is not the complete legal health record.[facility]
--- OUTSIDE RECORDS SUMMARY | 2025-04-07 16:23 | XMS_ITS | Encounter Summary ---
Author Organization [facility] Address [address] [place] [address] Phone Care Team Providers Care Pier Hand Helper Name Role Phone Steve Toscano MD Primary Care Provider Encounter Details Date Type Department Care Team (Late st Contact Info) Description 06/07/2021 Procedure Pass [facility] PERIOPERATIVE DEPT [address] [place] [id number] Social History Tobacco Use Types Packs/Day Years Used Date Smoking Tobacco: Every Day Cigarettes 0.3 6.8 Started: 06/11/2018 Smokeless Tobacco: Never Comments:My smoking [...] on filedocumented in this encounter Care Teams Pier Hand Helper Relationship Specialty Start Date End Date Steve Toscano MD [address] [place] [address] PCP - General 09/07/20 documented as of this encounter Additional Source Comments The information contained in this document represents components of the legal health record. It is not the complete legal health record.[facility]
--- OUTSIDE RECORDS SUMMARY | 2025-04-07 16:23 | XMS_ITS | Encounter Summary ---
Author Organization [facility] Address [address] [place] [address] Care Team Providers Care Shoes Hand Sewer Name Role Phone Amador Denny Primary Care Provider [phone] Encounter Details Date Type Department Care Team (Late st Contact Info) Description 01/01/2025 myChart Message [facility] Case Management Department [address] [place] [address] Samreen Mendoza RN venapro Social History Tobacco [...] Care Team (Late st Contact Info) Description 03/02/2026 2:15 PM EST Follow-Up [facility] 94 [facility] Orthopedic Department 94 [facility] [address] [place] [address] Pasquale Hunt MD [address] [place] [address] documented as of this encounter Visit Diagnoses Not on filedocumented in this encounter Care Teams Shoes Hand Sewer Relationship Specialty Start Date End Date Amador Denny [address] [place] [address] PCP - General Internal Medicine 04/23/24 documented as of this encounter
--- OUTSIDE RECORDS SUMMARY | 2025-04-07 16:23 | XMS_ITS | Encounter Summary ---
Author Organization [facility] Address [address] [place] [address] Phone Care Team Providers Care Piping Engineer Name Role Phone Steve Toscano MD Primary Care Provider Encounter Details Date Type Department Care Team (Late st Contact Info) Description 02/03/2021 Procedure Pass [facility] PERIOPERATIVE DEPT [address] [place] [phone] Social History Tobacco Use Types Packs/Day Years [...] on filedocumented in this encounter Care Teams Piping Engineer Relationship Specialty Start Date End Date Steve Toscano MD [address] [place] [address] PCP - General 09/07/20 documented as of this encounter Additional Source Comments The information contained in this document represents components of the legal health record. It is not the complete legal health record.[facility]
--- OUTSIDE RECORDS SUMMARY | 2025-04-07 16:23 | XMS_ITS | Clinical Summary ---
Author Organization [facility] Address [address] [place] [address] Phone Care Team Providers Care Sap Specialist Name Role Phone Steve Toscano MD Primary [...] this topic Medical Devices Implanted Type Area Assistant Printer Floor Covering Device Identifier Shelf Expiration Date Model / Serial / Lot Cement Bone 1x40gm Palacos R High Viscosity - [id number] Implanted:Qty: 2 on 06/07/2021 by Fritz Heller MD, PhD at [facility] Right: Knee Graft Concepts 08/06/2024 [id number] / / [id number] Knee Insert 11mm Component Surface Persona Polyethylene Cruciate Retaining Fixed Conventional Right - [id number] Implanted:Qty: 1 on 06/07/2021 by Fritz Heller MD, PhD at [facility] Right: Knee ANDREW / DIV OF [employer] 11/07/2028 [id number] / / [id number] Knee Patella 35mm Brittany Persona All Polyethylene Cemented Conventional - [id number] Implanted:Qty: 1 on 06/07/2021 by Fritz Heller MD, PhD at [facility] Right: Knee ANDREW / DIV OF [employer] 04/26/2029 [id number] / / [id number] Knee Implant 5.0deg Component Tibial Nexgen Titanium Stemmed Cemented Rt Size F - [id number] Implanted:Qty: 1 on 06/07/2021 by Fritz Heller MD, PhD at [facility] Right: Knee ANDREW / DIV OF [employer] 12/12/2030 [id number] / / [id number] Knee Implant Component Size 11 Femoral Persona [place] Cement Cruciate Retaining Narrow Right - [id number] Implanted:Qty: 1 on 06/07/2021 by Fritz Heller MD, PhD at [facility] Right: Knee ANDREW / DIV OF BRISTOL [employer]QUIB[employer] 10/11/2030 [id number] / / [id number] Insurance [facility] Advance Directives For more information, please contact: [phone] (9AM - 5PM [place], Sunday-Sunday) Documents on File Type Date Recorded Patient Canvas Cutter Hand Expl anation Healthcare Proxy 06/08/2021 4:23 PM Care Teams Sap Specialist Relationship Specialty Start Date End Date Steve Toscano MD [address] [place] [address] PCP - General 09/07/20 Additional Source Comments The information contained in this document represents components of the legal health record. It is not the complete legal health record.[facility]
--- OUTSIDE RECORDS SUMMARY | 2025-04-07 16:23 | XMS_ITS | Encounter Summary ---
Author Organization [facility] Address [address] [place] [address] Care Team Providers Care Protocol Officer Name Role Phone Amador Denny Primary Care Provider Encounter Details Date Type Department Care Team (Late st Contact Info) Description 11/24/2024 myChart Message [facility] Case Management Department [address] [place] [address] Samreen Mendoza RN Medial equipment Social History [...] Info) Description 03/02/2026 2:15 PM EST Follow-Up [facility] [address] [facility] Orthopedic Department [address] [facility] [employer] [address] [place] [address] Pasquale Hunt MD [address] [place] [address] documented as of this encounter Visit Diagnoses Not on filedocumented in this encounter Care Teams Protocol Officer Relationship Specialty Start Date End Date Amador Denny [address] [place] [address] PCP - General Internal Medicine 04/23/24 documented as of this encounter
--- OUTSIDE RECORDS SUMMARY | 2025-04-07 16:23 | XMS_ITS | Encounter Summary ---
Author Organization [facility] Address [address] [place] [address] Care Team Providers Care Flame Cutting Machine Operator Helper Name Role Phone Amador eDnny Primary Care Provider [phone] Encounter Details Date Type Department Care Team (Late st Contact Info) Description 11/22/2024 myChart Message [facility] Case Management Department [address] [place] [address] Samreen Mendoza RN Request for Recovery Equipment [...] Info) Description 03/02/2026 2:15 PM EST Follow-Up [facility] 94 [facility] Orthopedic Department 94 [facility] [address] [place] [address] Pasquale Hunt MD [address] [place] [address] documented as of this encounter Visit Diagnoses Not on filedocumented in this encounter Care Teams Flame Cutting Machine Operator Helper Relationship Specialty Start Date End Date Amador Denny [address] [place] [address] PCP - General Internal Medicine 04/23/24 documented as of this encounter
--- OUTSIDE RECORDS SUMMARY | 2025-04-07 16:23 | XMS_ITS | Encounter Summary ---
Author Organization [facility] Address [address] [place] [address] Care Team Providers Care Hotbed Lever Operator Name Role Phone Amador Denny Primary Care Provider [phone] Encounter Details Date Type Department Care Team (Late st Contact Info) Description 10/28/2024 Sellywheret Message [facility] [place] [address] [place] [address] [employer], Generic Provider [address] [place] [phone] Questionnaire Submission Social History Tobacco Use Types [...] Info) Description 03/02/2026 2:15 PM EST Follow-Up [facility] 94 [facility] Orthopedic Department [address] [address] Pasquale Hunt MD [address] [place] [address] documented as of this encounter Visit Diagnoses Not on filedocumented in this encounter Care Teams Hotbed Lever Operator Relationship Specialty Start Date End Date Amador Denny [address] [place] [address] PCP - General Internal Medicine 04/23/24 documented as of this encounter
--- OUTSIDE RECORDS SUMMARY | 2025-04-07 16:23 | XMS_ITS | Clinical Summary ---
Author Organization [facility] Address [address] [place] [address] Care Team Providers Care Pier Hand Name Role Phone Amador Denny Primary Care Provider [phone] Allergies No known active allergies Medications Vitamin [...] Encounters Date Type Department Care Team Description 03/03/2025 1:45 PM EST Follow-Up [address] Orthopedic Department [address] [place] [phone] Pasquale Hunt MD Primary osteoarthritis of right hip (Primary Dx); Status post total replacement of right hip 03/01/2025 myChart Message [address] Orthopedic Department [address] [place] [address] Pasquale Hunt MD Payment Question 02/05/[address] Orth[address] [address] Pasquale Hunt MD Dentist appointment 02/04/[address] Orth[address] [address] Pasquale Hunt MD Dental Protocol 01/30/[address] Orth[address] [address] Pasquale Hunt MD Letters and Forms 01/27/[address] Orth[address] [address] Pasquale Hunt MD 01/26/[address] Orth[address] [address] Pasquale Hunt MD FYI 01/20/2025 1:30 PM EDT Follow-Up [address] Orth[address] [address] Pasquale Hunt MD Status post total replacement of right hip (Primary Dx) from Last 3 Months Immunizations Immunization Administration Dates Next Due Covid-19 Monovalent Vaccine, Moderna, mRNA, PF 1 ,05/27/2020 INFLUENZA, SPLIT VIRUS, TRIVALENT, PF 01/19/2025 Influenza, Injectable, Madin [place] Canine Kidney, Preservative Free, Quadrivalent 02/20/2017 Influenza, [...] Sign Reading Time Taken Comments Blood Pressure 126/70 03/03/2025 1:52 PM EST Pulse 78 01/05/2025 2:00 PM EDT Temperature 36.7 C (98 F) 03/03/2025 1:52 PM EST Respiratory Rate 20 01/05/2025 1:45 PM EDT Oxygen Saturation 95% 01/05/2025 2:00 PM EDT Inhaled Oxygen Concentration - - Weight 98.9 kg (218 lb) 03/03/2025 1:52 PM EST Height 167.6 cm (5' 6 ) 03/03/2025 1:52 PM EST Body Mass Index 35.19 03/03/2025 1:52 PM EST Plan of Treatment Upcoming Encounters Date Type Department Care Team (Late st Contact Info) Description 03/02/2026 2:15 PM EST Follow-Up [facility] 94 [facility] Orthopedic Department [address] [address] Pasquale Hunt MD [address] [place] [address] Health Maintenance Due Date Last Done Comments [...] this topic Medical Devices Implanted Type Area Custom Home Installer Device Identifier Shelf Expiration Date Model / Serial / Lot Shell Acetabular [place] Sector Gription 58mm [place] - [id number] Implanted:Qty: 1 on 01/05/2025 by Pasquale Hunt MD at [facility] Implant Right: Hip DEPUY 05/09/2034 1217-32-0 58 / / [id number] Liner Acetabular 10 Degree Polyethylene [id number] 4mm [place] Altrx - [id number] Implanted:Qty: 1 on 01/05/2025 by Pasquale Hunt MD at [facility] Implant Right: Hip DEPUY 10/06/2029 1221-40-1 58 / / [id number] Stem Femoral Stem Standard Neck 36x8l [id number] Srom Ceramax - [id number] Implanted:Qty: 1 on 01/05/2025 by Pasquale Hunt MD at [facility] Implant Right: Hip DEPUY 03/08/2029 [id number] / / [id number] Head Femoral 02/19 Taper S-Rom M-Spec Metal 40mmxplus 0mm [place] - [id number] Implanted:Qty: 1 on 01/05/2025 by Pasquale Hunt MD at [facility] Implant Right: Hip DEPUY 10/07/2027 1365-42-5 00 / / [id number] Screw Acetabular Cancellous Dome Stainless Steel 6.1jsq89zp [place] - [id number] Implanted:Qty: 1 on 01/05/2025 by Pasquale Hunt MD at [facility] Screw Right: Hip DEPUY 09/06/2034 1217-35-5 00 / / [id number] S-Rom Modular Hip System Zti Proximal Sleeve Porous Coated Fits: 20 X 15 Stem Cone: B [place]: Lrg Implanted:Qty: 1 on 01/05/2025 by Pasquale Hunt MD at [facility] Right: Hip DEPUY [employer] 05/09/2026 52-1405 / / [id number] Procedures * Due to [place] [employer] law, this organization might not be sharing negative HIV tests. Procedure Name Priority Date/Time Associated Diagnosis Comments XR HIP RIGHT 2+ VW W PELVIS Routine 01/20/2025 1:44 PM EDT Status post total replacement of right hip BASIC METABOLIC PANEL Routine 12/10/2024 3:18 PM EDT Primary osteoarthritis of right hip from Last 3 Months or Most Recently Relevant to Health Maintenance Results * Due to [place] [employer] law, this organization might not be sharing [...] IMG XR PROCEDURES Final Re sult * (ABNORMAL) Basic Metabolic Panel (12/10/2024 3:18 PM EDT) NA 138 136 - 145 mmol/L 12/10/2024 4:01 PM EDT [facility] K 4.1 3.5 - 5.1 mmol/L 12/10/2024 4:01 PM EDT [facility] Cl 106 98 - 109 mmol/L 12/10/2024 4:01 PM EDT [facility] CO2 20(L) 22 - 32 mmol/L 12/10/2024 4:01 PM EDT [facility] BUN 25(H) 8 - 23 mg/dL 12/10/2024 4:01 PM EDT [facility] Creatinine 1.05 0.50 - 1.12 mg/dL 12/10/2024 4:01 PM EDT [facility] Glucose 85 60 - 99 mg/dL 12/10/2024 4:01 PM EDT [facility] Calcium 9.4 8.4 - 10.4 mg/dL 12/10/2024 4:01 PM EDT [facility] Anion Gap 16 >=0 12/10/2024 4:01 PM EDT [facility] eGFR 80 >=60 mL/min/1. 73m2 12/10/2024 4:01 PM EDT [facility] Comment:The estimated glomer ular filtration [...] Hunt MD LAB BLOOD ORDERABLES Final Result [facility] [address] [place] [address], from Last 3 Months or Most Recently Relevant to Health Maintenance Insurance [employer] on file [employer] Advance Directives Documents on File Type Date Recorded Patient Senior Restaurant Manager Expl [facility] Health Care Proxy 12/10/2024 5:20 PM HCP * Full Code (Latest Code Status on File) Date Activated Date Inactivated Comments 01/05/2025 8:03 AM 01/06/2025 9:42 AM Care Teams Pier Hand Relationship Specialty Start Date End Date Amador Denny [address] [place] [address] PCP - General Internal Medicine 04/23/24
--- OUTSIDE RECORDS SUMMARY | 2025-04-07 16:23 | XMS_ITS | Encounter Summary ---
Author Organization [facility] Address [address] [place] [address] Care Team Providers Care Power Supply Engineer Name Role Phone Amador Denny Primary Care Provider Encounter Details Date Type Department Care Team (Late st Contact Info) Description 11/25/2024 myChart Message [facility] Case Management Department [address] [place] [address] Samreen Mendoza RN equipmenet Social History Tobacco [...] Info) Description 03/02/2026 2:15 PM EST Follow-Up [facility] Orthopedic Department 94 [facility] [address] [place] [address] Pasquale Hunt MD [address] [place] [address] documented as of this encounter Visit Diagnoses Not on filedocumented in this encounter Care Teams Power Supply Engineer Relationship Specialty Start Date End Date Amador Denny [address] [place] [address] PCP - General Internal Medicine 04/23/24 documented as of this encounter
--- OUTSIDE RECORDS SUMMARY | 2025-04-07 16:23 | XMS_ITS | Patient Health Record ---
Author Organization [facility] Address [address] [place] [address] Care Team Providers Care Software Packaging Engineer Name Role Phone Amador Denny Primary Care Provider Allergies No Known Allergies Results Component Value Reference Range Flag Notes PSA Total+% Free-[id number] Reviewed date:04/17/2024 10:51:33 AM Interpretation: Performing Lab:[facility] [place], [address] [place] [address], Phone - [phone], Director - Carlo Notes/Report: Prostate Specific Ag 3.1 0.0-4.0 ng/mL Maddy ECLIA methodology. . According to the [place] [employer], Serum PSA should decrease and [...] PSA, Free 0.61 N/A ng/mL Maddy ECLIA methodology. % Free PSA 19.7 The table below [...] any other population of men. Vitamin D, 60-Beexqeu-[id number] Reviewed date:04/17/2024 10:51:33 AM Interpretation: Performing Lab:[facility], [address] [facility], Phone - [phone], Director - Carlo Notes/Report: Vitamin D, 25-Hydroxy 19.8 30.0-100.0 ng/mL L Vitamin D deficiency has been defined by the [place] [employer] and an Endocrine Society practice guideline as a level of serum 25-OH vitamin D less than 20 ng/mL (1,2). The Endocrine Society went on to further define vitamin D insufficiency as a level between 21 and 29 ng/mL (2). 1. IOM ([place] [employer]). 2010. Dietary reference intakes for calcium and D. [place]: The National Academies Press. 2. Felipe MF, Gissell CARDONA, Kim PINTO, et al. Evaluation, treatment, and prevention of vitamin D deficiency: an Endocrine Society clinical practice guideline. JCEM. 2010; 96(7):1911-30. TSH+Free [id number] Reviewed date:04/17/2024 10:51:33 AM Interpretation: Performing Lab:[facility] [place], [address] [facility], Phone - [phone], Director - Carlo Notes/Report: TSH 0.715 0.450-4.500 uIU/mL T4,Free(Direct) 1.33 0.82-1.77 ng/dL Lipid Panel-[id number] Reviewed date:04/17/2024 10:51:33 AM Interpretation: Performing Lab:[facility] [place], [address] [facility], [place], Phone - [phone], Director - Carlo Notes/Report: Cholesterol, Total 181 100-199 mg/dL Triglycerides 70 0-149 mg/dL HDL Cholesterol 54 >39 mg/dL VLDL Cholesterol Abundio 13 5-40 mg/dL LDL Chol Calc (NIH) 114 0-99 mg/dL H Comp. Metabolic Panel ([id number] Reviewed date:04/17/2024 10:51:34 AM Interpretation: Performing Lab:[facility] [place], [address] [facility], Phone - [phone], Director - MDJoy Notes/Report: Glucose 83 70-99 mg/dL BUN 20 8-27 mg/dL Creatinine 1.02 0.76-1.27 mg/dL eGFR 83 >59 mL/min/1.73 BUN/Creatinine Ratio 20 10-24 Sodium 139 134-144 mmol/L Potassium 4.4 3.5-5.2 mmol/L Chloride 104 96-106 mmol/L Carbon Dioxide, Total 19 20-29 mmol/L L Calcium 9.2 8.6-10.2 mg/dL Protein, Total 6.9 6.0-8.5 g/dL Albumin 4.5 3.9-4.9 g/dL Globulin, Total 2.4 1.5-4.5 g/dL Bilirubin, Total 0.3 0.0-1.2 mg/dL Alkaline Phosphatase 72 44-121 IU/L AST (SGOT) 20 0-40 IU/L CBC with Diff, Platelet, NLR -[id number] Reviewed date:04/17/2024 10:51:34 AM Interpretation: Performing Lab:[facility] [place], [address] [facility], [place], Phone - [phone], Director - MDJodry Notes/Report: WBC 9.1 3.4-10.8 x10E3/uL RBC 4.61 4.14-5.80 x10E6/uL Hemoglobin 14.2 13.0-17.7 g/dL Hematocrit 42.3 37.5-51.0 % MCV 92 79-97 fL MCH 30.8 26.6-33.0 pg MCHC 33.6 31.5-35.7 g/dL RDW 12.5 11.6-15.4 % Platelets 382 150-450 x10E3/uL Neutrophils 70 Not Estab. % Lymphs 19 Not Estab. % Monocytes 9 Not Estab. % Eos 2 Not Estab. % Basos 0 Not Estab. % Neutrophils (Absolute) 6.4 1.4-7.0 x10E3/uL Lymphs (Absolute) 1.8 0.7-3.1 x10E3/uL Neut/Lymph Ratio 3.6 0.0-2.9 ratio H Published COVID-19 studies suggest: Low likelihood of severe COVID-19 disease progression 0.0-2.9 High likelihood of severe COVID-19 disease progression >4.9 Monocytes(Absolute) 0.8 0.1-0.9 x10E3/uL Eos (Absolute) 0.1 0.0-0.4 x10E3/uL Baso (Absolute) 0.0 0.0-0.2 x10E3/uL Immature Granulocytes 0 Not Estab. % Immature Grans (Abs) 0.0 0.0-0.1 x10E3/uL Urinalysis, Complete-[id number] Reviewed date:01/28/2025 07:06:44 AM Interpretation: Performing Lab:[facility], [address] [place] [address], Phone - [phone], Director - Carlo Notes/Report: Clinical Information:SRC: Clinical Information:SRC: Specific [place]ennial 1.006 1.005-1.030 pH 6.0 5.0-7.5 Urine-Color Red Yellow A Appearance Cloudy Clear A WBC Esterase 2+ Negative A Protein 2+ Negative/Trace A Glucose Negative Negative Ketones Negative Negative Occult Blood 2+ Negative A Bilirubin Negative Negative Urobilinogen,Semi-Qn 0.2 0.2-1.0 mg/dL Nitrite, Urine Negative Negative Microscopic Examination See below: M icroscopic was indicated and was performed. WBC >30 0 - 5 /hpf A RBC 0-2 0 - 2 /hpf Epithelial Cells (non renal) None seen 0 - 10 /hpf Casts None seen None seen /lpf Bacteria None seen None seen/Few Urine Culture, Routine-[id number] Reviewed date:01/28/2025 07:06:44 AM Interpretation: Performing Lab:[facility], [address] [place] [address], [place], Phone - [phone], Director - Carlo Notes/Report: Clinical Information:SRC: Clinical Information:SRC: Urine Culture, Routine Final report Result 1 Culture shows less than 10,000 colony forming units of bacteria per milliliter of urine. This colony count is not generally considered to be clinically significant. Lumbar Spine 2 or 3 Views Reviewed [...] Advanced osteoarthritis of the right hip. WSN: [id number] Ordering Physician: Amador Denny Dictated By: Morgan [...] 898 mGy*cm. COMPARISON: Abdomen CT 12/24/2013 FINDINGS: Hse Specialist View Findings, Lines and Tubes: Right hip [...] No hydronephrosis or nephrolithiasis. An actionable message (Holmes) has been communicated via the [facility] system on 01/27/2025 2:54 PM, Message ID [id number]. WSN: [id number] Ordering Physician: Amador Denny Dictated By: [facility], Edouard Mosley Reason For Referral Reason Please refer the pat ient to [facility] Diagnosis 1 Status post right kn ee replacement (Z96.651) Referral Organization Amador Denny [facility] Referring Provider First Name Amador Referring Provider Last Name Eduin Referring Provider Speciality Internal M edicine Referred Provider Specialty Orthopedic S urgery General Notes Eligio BEVERLEYLilliana 11/2024 10:01:27 AM EST > faced paperwork to [facility] , Eligio BEVERLEYLilliana 04/22/2024 09:23:30 AM EST > refaxed, Eligio Lilliana LOWERY 04/23/2024 10:17:49 AM EST > called and got a new updated number, Lilliana Tripathi 04/23/2024 01:56:54 PM EST > LMAM with number to call to schedule , Lilliana Tripathi 04/23/2024 01:57:41 PM EST > and if he needs further assistance he can call me back and I will do what I can to assist , Eligio Lilliana LOWERY 04/23/2024 02:01:27 PM EST > patient called back patient original Knee Replacement was done at [facility] , Eligio BEVERLEYLilliana 04/25/2024 08:08:45 AM EST > paperwokr form [facility] faxed to [facility] for patient. Clinical Notes Wants to go to [facility] , , // [phone] Referral Priority Routine Reason Screening colonoscop y Diagnosis 1 Screening for colon cancer (Z12.11) Referral Organization Amador Denny Md Referring Provider First Name Amador Referring Provider Last Name Eduin Referring Provider Speciality Internal edicine Referred Provider Specialty Gastroentero logy General Notes Aamir Alvares 12:59:07 PM EST > Faxed over to Giorgio toscano Kalise 06/04/2024 11:28:10 AM EST > Refaxed , Aamir Alvares 06/04/2024 11:28:15 AM EST > Pt has number for gastro to call and schedule if he has any issues he knows to give us a call. Clinical Notes [facility] Referral Priority Routine Reason Evaluate and [...] [facility] out of network, closest place is [facility], p: [phone] f:[phone], Lilliana Tripathi 05/26/2024 01:56:21 PM EST > [...] Reason Referral to orthoped ic surgery at [facility] Diagnosis 1 Status post right kn ee replacement (Z96.651) Referral Organization Amador Denny Md Referring Provider First Name Amador Referring Provider Last Name Eduin Referring Provider Speciality Internal edicine Referred Provider Specialty Orthopedic S urgery General Notes Aamir Alvares 02:23:25 PM EDT > Faxed to Giorgio Bailey [facility] 08/26/2024 11:40:48 AM EDT > refaxed to Gior[facility] Bailey [facility] 09/02/2024 02:11:13 PM EDT > Clem from [facility] states that he didn't have the Referral refaxed it over Giorgio Kalise 09/04/2024 08:09:32 AM EDT > Pt was seen on 09/03/24 Clinical Notes Cruz Esquivel, PH : [phone], F: [phone] Referral Priority Routine Referral Appointment Date 09/03/2024 Reason lower back pain with sciatica. Pt prefers [facility]. Diagnosis 1 Lumbar radiculopathy (M54.16) Referral Organization Amador Denny [facility] Referring Provider First Name Amador Referring Provider Last Name Eduin Referring Provider Speciality Internal edicine Referred Provider Specialty Physical The rapist General Notes Vita Baker 10/17/19 04:53:31 PM EDT > faxed to attain PTSamuel Susan 10/20/2024 02:11:19 PM EDT > Patient has been left multiple message, he has not called back to reschedule Clinical Notes [address] [place] [address], f [phone] Referral Priority Routine Reason Consultation for rig ht hip replacement. Diagnosis 1 Primary osteoarthrit is of right hip (M16.11) Referral Organization [facility] Referring Provider First Name Amador Referring Provider Last Name Eduin Referring Provider Speciality Internal edicine Referred Provider Specialty Orthopedic S urgery General Notes Lilliana Tripathi 12/2024 10:22:17 AM EDT > [facility] has a Ortho department, please [...] going to call to schedule Clinical Notes Cruz, PH: , F: [phone] Referral Priority Routine Reason Urgent visit regardi ng bladder mass on recent CT and hematuria. Requesting PVU if possible. Diagnosis 1 Bladder mass (N32.89 ) Referral Organization [facility], Referring Provider First Name Marissa Referring Provider [...] to pay out of pocket. Redirected to [facility]. Request and notes faxed to that office @ [phone]. Phone is [phone] Referral Priority Routine Medications Medication SIG (Take, Route, Frequency, Duration) Notes Start Date End Date Status Tamsulosin HCl 0.4 MG Capsule 1 capsule Orally Once a day 01/19/2025 Active Vitamin D3 125 MCG (5000 UT) Capsule 1 capsule Orally Once a day Active Immunizations Vaccine Route Administration Date Status Comme nts * FLUARIX TIV PFS IM Intramuscular 01/19/2025 Administered Social History Tobacco Use: Social History Observation [...] Tobacco Use/Smoking Are you a former smoker Problems Problem Type SNOMED Code ICD Code Onset Dates Problem Status W/U Status Risk Notes Problem Vitamin D deficiency (22889909) Vitamin D deficiency (E55.9) Active confirmed Problem Sciatica (67747051) Right sided sciatica (M54.31) Active confirmed Problem Generalized anxiety disorder (36683694) Generalized anxiety disorder (F41.1) Active confirmed Problem Erectile dysfunction (disorder) (997527198) Erectile dysfunction, unspecified erectile dysfunction type (N52.9) Active confirmed Problem Localized, primary osteoarthritis of the pelvic region and thigh (395199001) Primary osteoarthritis of right hip (M16.11) Active confirmed Problem Lumbar radiculopathy (315966397) Lumbar radiculopathy (M54.16) Active confirmed Problem Lower urinary tract symptoms due to benign prostatic hypertrophy (72199973024841) Benign prostatic hyperplasia with lower urinary tract symptoms (N40.1) Active confirmed Problem Bladder mass (080378876) Bladder mass (N32.89) Active confirmed Problem Stasis dermatitis (01247262) Stasis dermatitis (I87.2) Active confirmed Problem Artificial knee joint present (191174557698) Status post right knee replacement (Z96.651) Active confirmed Vital Signs Heart Rate 80 /min 03/18/2025 Blood pressure diastolic 80 mm Hg 03/18/2025 Height 64 in 03/18/2025 Blood pressure systolic 120 mm Hg 03/18/2025 Weight 221.2 lbs 03/18/2025 BMI 37.96 kg/m2 03/18/2025 Procedures Procedure Date Ordered Date Performed Result Body Sit e EAR IRRIGATION 08/25/2024 N/A Encounters Encounter Location Date Provider Diagnosis Eduin Griffin [address] [place] [address] 12/02/2024 Amador Denny Status post right kn ee replacement Z96.651 ; Primary osteoarthritis of right hip M16.11 ; Acute pain of right knee M25.561 ; Benign prostatic hyperplasia with lower urinary tract symptoms N40.1 and Vitamin D deficiency E55.[address] [address] 04/15/2024 Amador Denny Status post right kn ee replacement Z96.651 ; Laboratory tests ordered as part of a complete physical exam (CPE) Z00.00 and Encounter to establish care Z76.[address] [address] 05/20/2024 Amador Denny Annual physical exam Z00.00 ; Vitamin D deficiency E55.9 ; Status post right knee replacement Z96.651 ; Benign prostatic hyperplasia with lower urinary tract symptoms N40.1 ; Epidermal inclusion cyst L72.0 and Screening for colon cancer Z12.[address] [address] 06/13/2024 Amador Denny EIC (epidermal inclusion cyst) L72.[address] [address] 06/23/2024 Amador Denny Surgical wound infection T81.49XA and Encounter for removal of sutures Z48.[address] [address] 08/19/2024 Amador Denny Status post right kn ee replacement Z96.651 ; Acute pain of right knee M25.561 ; Benign prostatic hyperplasia with lower urinary tract symptoms N40.1 and Vitamin D deficiency E55.[address] [address] 08/25/2024 Amador Denny Foreign body of righ t ear, initial encounter T16.1XXA [address] [address] 10/13/2024 Amador Denny Lumbar radiculopathy M54.16 and Right sided sciatica M54.[address] [address] 10/15/2024 Amador Denny Status post right kn ee replacement Z96.651 ; Primary osteoarthritis of right hip M16.11 ; Acute pain of right knee M25.561 ; Benign prostatic hyperplasia with lower urinary tract symptoms N40.1 and Vitamin D deficiency E55.[address] [address] 11/07/2024 Amador Denny Status post right kn ee replacement Z96.651 ; Primary osteoarthritis of right hip M16.11 ; Acute pain of right knee M25.561 ; Benign prostatic hyperplasia with lower urinary tract symptoms N40.1 and Vitamin D deficiency E55.[address] [address] 12/04/2024 Amador Denny Benign prostatic hyperplasia with lower urinary tract symptoms N40.1 ; Primary osteoarthritis of right hip M16.11 ; Acute pain of right knee M25.561 ; Vitamin D deficiency E55.9 and Stasis dermatitis I87.[address] [address] 01/19/2025 Amador Denny Benign prostatic hyperplasia with lower urinary tract symptoms N40.1 ; Primary osteoarthritis of right hip M16.11 ; Vitamin D deficiency E55.9 ; Stasis dermatitis I87.2 and Encounter for immunization Z23 [address] [address] 01/26/2025 Amador Denny Damian hematuria R31. 0 ; Dysuria R30.0 and Chills R68.[address] [address] 01/28/2025 Amador Denny Damian hematuria R31. 0 and Bladder mass N32.[address] [address] 02/18/2025 Amador Denny Bladder mass N32.89 ; Status post right knee replacement Z96.651 ; Benign prostatic hyperplasia with lower urinary tract symptoms N40.1 ; Vitamin D deficiency E55.9 and Status post right hip replacement Z96.[address] [address] 03/18/2025 Amador Denny Bladder mass N32.89 ; Benign prostatic hyperplasia with lower urinary tract symptoms N40.1 ; Vitamin D deficiency E55.9 ; Generalized anxiety disorder F41.1 ; Erectile dysfunction, unspecified erectile dysfunction type N52.9 and Laboratory tests ordered as part of a complete physical exam (CPE) Z00.[address] [address] 04/25/2024 [facility] [address] [facility] [place] [address] 05/21/2024 [facility] [address] [facility] [place] [address] 05/21/2024 [facility] [address] [facility] [place] [address] 05/29/2024 [facility] [address] [facility] [place] [address] 06/23/2024 [facility] [address] [facility] [place] [address] 07/03/2024 [facility] [address] [facility] [place] [address] 07/31/2024 [facility] [address] [facility] [place] [address] 08/18/2024 [facility] [address] [facility] [place] [address] 08/26/2024 [facility] [address] [facility] [place] [address] 09/04/2024 [facility] [address] [facility] [place] [address] 09/09/2024 Amador Denny Acute pain of right knee M25.[facility] [address] [facility] [place] [address] 10/14/2024 [facility] [address] [facility] [place] [address] 12/12/2024 [facility] [address] [facility] [place] [address] 12/21/2024 [facility] [address] [facility] [place] [address] 01/27/2025 [facility] [address] [facility] [place] [address] 03/02/2025 Amador Denny Benign prostatic hyperplasia with lower urinary tract symptoms N40.1 [facility] [address] [facility] [id number] 08/23/2024 [facility] [address] [place] [address], [place] [id number] 08/23/2024 [facility] [address] [place] [id number] 08/25/2024 [facility] [address] [place], [place] [id number] 12/03/2024 Amador Denny Assessments Encounter Date Diagnosis (ICD Code) Assessment Notes Treatment Notes Treatment Clinical Notes Section Notes 06/13/2024 EIC (epidermal inclusion cyst) (ICD-10 - L72.0) 08/25/2024 Foreign body of right ear, initial encounter (ICD-10 - T16.1XXA) The patient's verbal consent right ear lavage performed recovering a insect.NDthe patient's ear before and after the procedure. Over 20 minutes was spent in direct patient contact appointment procedure. Patient tolerated the procedure well. Aftercare discussed with the patient. 09/09/2024 Acute pain of right knee (ICD-10 - M25.561) 10/13/2024 Right sided sciatica (ICD-10 - M54.31) 10/13/2024 Lumbar radiculopathy (ICD-10 - M54.16) 12/02/2024 Status post right knee replacement (ICD-10 - Z96.651) 01/19/2025 Benign prostatic hyperplasia with lower urinary tract symptoms (ICD-10 - N40.1) 03/02/2025 Benign prostatic hyperplasia with lower urinary tract symptoms (ICD-10 - N40.1) 04/15/2024 Laboratory tests ordered as part of a complete physical exam (CPE) (ICD-10 - Z00.00) 04/15/2024 Status post right knee replacement (ICD-10 - Z96.651) 03/18/2025 Benign prostatic hyperplasia with lower urinary tract symptoms (ICD-10 - N40.1) 03/18/2025 Bladder mass (ICD-10 - N32.89) Continue to follow with urology. 01/28/2025 Bladder mass (ICD-10 - N32.89) 01/28/2025 Damian hematuria (ICD-10 - R31.0) Hematuria has resolved since last visit. 01/26/2025 Dysuria (ICD-10 - R30.0) 02/18/2025 Bladder mass (ICD-10 - N32.89) 02/18/2025 Status post right knee replacement (ICD-10 - Z96.651) 01/26/2025 Damian hematuria (ICD-10 - R31.0) 12/04/2024 Benign prostatic hyperplasia with lower urinary tract symptoms (ICD-10 - N40.1) 11/07/2024 Status post right knee replacement (ICD-10 - Z96.651) 10/15/2024 Status post right knee replacement (ICD-10 - Z96.651) 06/23/2024 Encounter for removal of sutures (ICD-10 - Z48.02) 06/23/2024 Surgical wound infection (ICD-10 - T81.49XA) Sutures removed. 1 cc of pus removed the suture line. 05/20/2024 Annual physical exam (ICD-10 - Z00.00) 05/20/2024 Vitamin D deficiency (ICD-10 - E55.9) 10/15/2024 Primary osteoarthritis of right hip (ICD-10 - M16.11) 08/19/2024 Acute pain of right knee (ICD-10 - M25.561) 08/19/2024 Status post right knee replacement (ICD-10 - Z96.651) 08/19/2024 Benign prostatic hyperplasia with lower urinary tract symptoms (ICD-10 - N40.1) 05/20/2024 Status post right knee replacement (ICD-10 - Z96.651) 10/15/2024 Acute pain of right knee (ICD-10 - M25.561) 02/18/2025 Benign prostatic hyperplasia with lower urinary tract symptoms (ICD-10 - N40.1) 11/07/2024 Primary osteoarthritis of right hip (ICD-10 - M16.11) 11/07/2024 Acute pain of right knee (ICD-10 - M25.561) 12/04/2024 Primary osteoarthritis of right hip (ICD-10 - M16.11) 12/04/2024 Acute pain of right knee (ICD-10 - M25.561) 01/26/2025 Chills (ICD-10 - R68.83) 01/19/2025 Primary osteoarthritis of right hip (ICD-10 - M16.11) 03/18/2025 Vitamin D deficiency (ICD-10 - E55.9) 04/15/2024 Encounter to establish care (ICD-10 - Z76.89) 01/19/2025 Vitamin D deficiency (ICD-10 - E55.9) 12/02/2024 Primary osteoarthritis of right hip (ICD-10 - M16.11) 12/02/2024 Acute pain of right knee (ICD-10 - M25.561) 01/19/2025 Stasis dermatitis (ICD-10 - I87.2) Advised patient to avoid tight, band-like clothing around ankles. Encouraged him to wear compression stockings when on his feet for an extended period of time. 03/18/2025 Generalized anxiety disorder (ICD-10 - F41.1) 02/18/2025 Vitamin D deficiency (ICD-10 - E55.9) 12/04/2024 Vitamin D deficiency (ICD-10 - E55.9) 11/07/2024 Benign prostatic hyperplasia with lower urinary tract symptoms (ICD-10 - N40.1) 05/20/2024 Benign prostatic hyperplasia with lower urinary tract symptoms (ICD-10 - N40.1) 10/15/2024 Benign prostatic hyperplasia with lower urinary tract symptoms (ICD-10 - N40.1) 08/19/2024 Vitamin D deficiency (ICD-10 - E55.9) 10/15/2024 Vitamin D deficiency (ICD-10 - E55.9) 05/20/2024 Epidermal inclusion cyst (ICD-10 - L72.0) 02/18/2025 Status post right hip replacement (ICD-10 - Z96.641) 12/04/2024 Stasis dermatitis (ICD-10 - I87.2) Advised patient to avoid tight, band-like clothing around ankles. Encouraged him to wear compression stockings when on his feet for an extended period of time. 11/07/2024 Vitamin D deficiency (ICD-10 - E55.9) 03/18/2025 Erectile dysfunction, unspecified erectile dysfunction type (ICD-10 - N52.9) 12/02/2024 Benign prostatic hyperplasia with lower urinary tract symptoms (ICD-10 - N40.1) 01/19/2025 Encounter for immunization (ICD-10 - Z23) 12/02/2024 Vitamin D deficiency (ICD-10 - E55.9) 03/18/2025 Laboratory tests ordered as part of a complete physical exam (CPE) (ICD-10 - Z00.00) 05/20/2024 Screening for colon cancer (ICD-10 - Z12.11) 12/02/2024 Other This chart has been transcribed by a computerized dictation system. There are likely to be multiple oiler and greaser inaccuracies despite chart review. 04/15/2024 Other This chart has been transcribed by a computerized dictation system. There are likely to be multiple oiler and greaser inaccuracies despite chart review. 05/20/2024 Other This chart has been transcribed by a computerized dictation system. There are likely to be multiple oiler and greaser inaccuracies despite chart review. 06/23/2024 Other This chart has been transcribed by a computerized dictation system. There are likely to be multiple oiler and greaser inaccuracies despite chart review. 08/19/2024 Other This chart has been transcribed by a computerized dictation system. There are likely to be multiple oiler and greaser inaccuracies despite chart review. 08/25/2024 Other This chart has been transcribed by a computerized dictation system. There are likely to be multiple oiler and greaser inaccuracies despite chart review. 10/13/2024 Other This chart has been transcribed by a computerized dictation system. There are likely to be multiple oiler and greaser inaccuracies despite chart review. 10/15/2024 Other This chart has been transcribed by a computerized dictation system. There are likely to be multiple oiler and greaser inaccuracies despite chart review. 11/07/2024 Other This chart has been transcribed by a computerized dictation system. There are likely to be multiple oiler and greaser inaccuracies despite chart review. 12/04/2024 Other This chart has been transcribed by a computerized dictation system. There are likely to be multiple oiler and greaser inaccuracies despite chart review. 01/19/2025 Other This chart has been transcribed by a computerized dictation system. There are likely to be multiple oiler and greaser inaccuracies despite chart review. 01/26/2025 Other This chart has been transcribed by a computerized dictation system. There are likely to be multiple oiler and greaser inaccuracies despite chart review. 03/18/2025 Other Hematuria has resolved since last visit. Plan Of Treatment Pending Test Test Name Order Date MRI : Lumbosacral Spines 10/13/2024 X ray : Knee, right 04/15/2024 CT Abdomen and Pelvis 01/26/2025 X ray : LS Spine 10/13/2024 GUAIAC, SINGLE SPECIMEN 05/20/2024 EAR IRRIGATION 08/25/2024 Hemoglobin [id number] 03/18/2025 Urinalysis, Complete-[id number] 03/18/2025 Vitamin D, 20-Hjdgqnq-[id number] 03/18/2025 LP+Non-HDL Cholesterol-[id number] 03/18/2025 TSH+Free [id number] 03/18/2025 Hepatic Function Panel [id number] 2024 PSA Total (Reflex To Free)-[id number] 2024 Comp. Metabolic Panel [id number] 2024 CBC with Diff, Platelet, [id number] 03/09 Next Appt Details Provider Name:Marissa Powell i, 05/25/2025 03:15:00 PM, [address] [place] [address], [phone], Insurance Providers Payer Name Payer Address Payer Phone Subscriber Number Group Number Insured Name Patient Relationship to Insured Coverage Start Date Coverage End Date [facility] [address] [place] [address] [id number] Davy Noble Self - patient is the insured Medical (General) History Surgical History Surgery Date(Month/Year) Right Total Knee Replacement 2022 Right Total Hip Replacement 12/2024 Hospitalization History Reason Date(Month/Year) For Above Procedure
== END 2025-04-07 12:26 ==
LOC: HO.CT 12:25
PROVIDERS: PCP Internal Medicine; Visit Provider Urology
DX: N32.89 Other specified disorders of bladder (principal)
CPT/HCPCS: 74178; 82565; Q9967

== ENCOUNTER → 2025-04-07 12:27 | Outpatient (BNV) | payer OTHER, SELFPAY | PROVIDERS: PCP Internal Medicine; Visit Provider Radiology Diagnostic Radiology | DX: D35.00 Benign neoplasm of unspecified adrenal gland (principal) | CPT/HCPCS: 74178 ==